=== PATIENT | male | born 1945 | race Caucasian/White ===

== ENCOUNTER 2016-09-19 06:43 | Observation (INO) | payer MEDICARE, BC ==
[2016-09-19] MEDS ORDERED: NS 0.9% 1000 ML* 2,000 ML IV ONE (07:35)
--- NOTE | 2016-09-19 07:35 | ED ---
Allergic Reaction/Systemic - HPI Summary HPI Summary: 71 male presents brought in by EMS with complaints of an allergic reaction to contrast dye that began this morning upon waking, from an imaging study that he received yesterday 09/18/16. Patient has a history of prostate cancer and had it removed back in 2012. He recently had a tumor found in the area of his groin and had an ablation done approximately 1 month ago. He went to have imaging to check on procedure yesterday 09/18/16 in [facility] where he received contrast dye. Due to patients known history of allergic reactions to dye, he was pre-medicated with 150mg prednisone and 100mg of Benadryl before procedure around 1:00pm yesterday. 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 This morning upon waking he states he did not feel well, was nauseous and weak. He also noted his skin to be very red in color throughout body, mainly face and trunk and felt itchy and burning. Also states he has been shivering and feels cold. states when she got up to find him she witnessed him sitting in a chair experiencing a syncopal episode where he was unresponsive, diaphoretic and shaking his arms only lasting a couple of seconds. Patient was completely responsive and normal after episode. Denies seizure history. She states it reminded her of when he had a cardiac arrest back in 2012. Patient also has complaints of a cold, dry non-productive cough and voice hoarseness that has not gone away for the past month even after a Z-pack. Admits to low grade fever of 99-100F. Denies chest pain, SOB, difficulty breathing, airway involvement and abdominal pain before and after episode. Denies hemoptysis, vomiting, dizziness, headache and edema. At the moment complains of feeling tired and weak. PMHx significant for cardiac disease (2 DC's), cardiac arrest, prostate cancer and hypertension. Does admit to this resembling past allergic reactions to contrast dye. 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 Negative: Abdominal Pain, Chest Pain, Cough Wheezing, Difficulty Breathing, Throat Tightening, Vomiting - Related Hx Possible Reaction To: Other: - contrast dye <Livier Miller - Last Filed: 09/19/16 15:23> - HPI Summary HPI Summary: I was available for consultation. This patient was seen by mid level provider. The patient was not presented, seen, or examined by me. WR. <Tramaine Sawyer - Last Filed: 09/20/16 08:28> - History of Current Complaint Chief Complaint: EDAllergicReaction Time Seen by Provider: 09/19/16 07:09 - Allergies/Home Medications Allergies/Adverse Reactions: Allergies Allergy/AdvReac Type Severity Reaction Status Date / Time Iodinated Diagnostic Agents Allergy Severe See Comment Verified 08/14/16 10:58 Levofloxacin Allergy Intermediate Hives Verified 08/14/16 10:58 Home Medications: Home Medications Atorvastatin* [Lipitor*] 20 mg PO QAM 09/19/16 [History Confirmed 09/19/16] Atorvastatin* [Lipitor*] 40 mg PO QAM 09/19/16 [History Confirmed 09/19/16] Ezetimibe TAB* [Zetia TAB*] 10 mg PO QAM 09/19/16 [History Confirmed 09/19/16] Metoprolol Succinate XL TAB* [Toprol XL TAB*] 25 mg PO QAM 09/19/16 [History Confirmed 09/19/16] Nitroglycerin TAB 0.4 MG* 0.4 mg SL Q5M PRN 09/19/16 [History Confirmed 09/19/16 ] PMH/Surg Hx/FS Hx/Imm Hx Endocrine/Hematology History: Denies: Hx Diabetes, Hx Thyroid Disease, Hx Anemia, Hx Unexplained Bleeding Cardiovascular History: Reports: Hx Cardiac Arrest, Hx Hypertension - UNDER CONTROL Denies: Hx Aneurysm, Hx Angina, Hx Angioplasty, Hx Auto Implanted Cardiovert Defib, Hx Cardiomegaly, Hx Congenital Heart Disease, Hx Congestive Heart Failure , Hx Coronary Artery Disease, Hx Deep Vein Thrombosis, Hx Hypercholesterolemia, Hx Hypotension, Hx Pacemaker/ICD, Hx Peripheral Vascular Disease, Hx Rheumatic Fever, Hx Syncope, Hx Valvular Heart Disease, Other Cardiovascular Problems/ Disorders Respiratory History: Denies: Hx Asthma, Hx Chronic Obstructive Pulmonary Disease (COPD) GI History: Denies: Hx Ulcer History: Reports: Hx Benign Prostatic Hyperplasia, Other Problems/ Disorders - prostate cancer, removal of prostate Denies: Hx Renal Disease - hx stones right per pt Musculoskeletal History: Reports: Hx Arthritis, Hx Back Problems Denies: Hx Bursitis, Hx Congenital Bone Abnormalities, Hx Fibromyalgia, Hx Gout, Hx Orthopedic Injury, Hx Osteoporosis, Hx Tendonitis, Other Musculoskeletal History Sensory History: Reports: Hx Contacts or Glasses, Hx Hearing Aid, Hx Hearing Problem Denies: Hx Cataracts, Hx Eye Injury, Hx Eye Prosthesis, Hx Glaucoma, Hx Legally Blind, Hx Macular Degeneration, Hx Vision Problem, Hx Deafness Opthamlomology History: Reports: Hx Contacts or Glasses Denies: Hx Cataracts, Hx Eye Injury, Hx Eye Prosthesis, Hx Glaucoma, Hx Legally Blind, Hx Macular Degeneration, Hx Vision Problem Neurological History: Reports: Other Neuro Impairments/Disorders - PAIN CLINIC INJECTIONS Denies: Hx Dementia, Hx Developmental Delay, Hx Headaches, Hx Migraine, Hx Nerve Disease, Hx Seizures, Hx Spinal Cord Injury, Hx Transient Ischemic Attacks (TIA) Psychiatric History: Denies: Hx Panic Disorder - Cancer History Cancer Type, Location and Year: PROSTATE - Surgical History Surgery Procedure, Year, and Place: Mi - stents IN RCA -[facility]XUS DRUG ELUTING- 10/09,VASECTOMY 07/1982, RT BREAST GYNECOMASTIA 1965, PROSTATECTOMY 2012 Infectious Disease History: No Infectious Disease History: Denies: Hx Clostridium Difficile, Hx Hepatitis, Hx Human Immunodeficiency Virus (HIV), Hx of Known/Suspected MRSA, Hx Shingles, Hx Tuberculosis, Hx Known/ Suspected VRE, Hx Known/Suspected VRSA, History Other Infectious Disease, Traveled Outside the [place] in Last 30 Days - Social History Alcohol Use: None Substance Use Type: Reports: None Smoking Status (MU): Former Smoker Type: Cigarettes Length of Time of Smoking/Using Tobacco: quit 10/09/2004 <Livier Miller - Last Filed: 09/19/16 15:23> Review of Systems Positive: Fever, Chills, Fatigue, Skin Diaphoresis Eyes: Negative ENT: Negative Cardiovascular: Negative Positive: Cough Positive: Nausea Genitourinary: Negative Musculoskeletal: Negative Positive: Rash - erythema, pruritis Positive: Weakness Psychological: Normal All Other Systems Reviewed And Are Negative: Yes <Livier Miller - Last Filed: 09/19/16 15:23> Physical Exam Triage Information Reviewed: Yes Vital Signs On Initial Exam: Initial Vitals Temp Pulse Resp BP Pulse Ox 99.1 F 78 16 124/61 96 09/19/16 06:45 09/19/16 06:45 09/19/16 06:45 09/19/16 06:45 09/19/16 06:45 Vital Signs Reviewed: Yes Appearance: Positive: Well-Appearing - erythematous face and chest observed upon entry, No Pain Distress, Well-Nourished Skin: Positive: Warm, Skin Color Reflects Adequate Perfusion, Dry, Erythema @ - face, trunk, and mild erythema on extremities. Negative: Cold, Numb, Cyanosis @ , Diaphoretic, Scaly Skin/Lesions, Pale, Weeping Skin/Lesions Head/Face: Positive: Normal Head/Face Inspection - beside erythematous skin Eyes: Positive: Normal, EOMI, SAE, Conjunctiva Clear ENT: Positive: Normal ENT inspection, Hearing grossly normal, Pharyngeal erythema, TMs normal. Negative: Nasal congestion, Nasal drainage, Tonsillar swelling, Tonsillar exudate, Trismus, Muffled/hoarse voice Dental: Negative: Percussion Tenderness @, Cervical Lymphadenopathy Neck: Positive: Supple, Nontender, No Lymphadenopathy Respiratory/Lung Sounds: Positive: Clear to Auscultation, Breath Sounds Present , Decreased Breath Sounds. Negative: Rales, Rhonchi, Wheezes Cardiovascular: Positive: Normal, RRR, Pulses are Symmetrical in both Upper and Lower Extremities. Negative: Leg Edema Left, Leg Edema Right Abdomen Description: Positive: Nontender, No Organomegaly, Soft. Negative: CVA Tenderness (R), CVA Tenderness (L), Distended, Guarding, McBurney's Point Tenderness, Peritoneal Signs, Pulsatile Mass Bowel Sounds: Positive: Present Musculoskeletal: Positive: Normal, Strength/ROM Intact. Negative: Edema Left, Edema Right Neurological: Positive: Normal, Sensory/Motor Intact, Alert, Oriented to Person Place, Time, CN Intact II-III, Normal Gait, Facial Symmetry, Speech Normal. Negative: Disoriented, Facial Droop Psychiatric: Positive: Normal, Affect/Mood Appropriate - [place] Coma Scale Coma Scale Total: 15 <Livier Miller - Last Filed: 09/19/16 15:23> Vital Signs On Initial Exam: Initial Vitals Temp Pulse Resp BP Pulse Ox 99.1 F 78 16 124/61 96 09/19/16 06:45 09/19/16 06:45 09/19/16 06:45 09/19/16 06:45 09/19/16 06:45 <Tramaine Sawyer - Last Filed: 09/20/16 08:28> Diagnostics - Vital Signs Vital Signs Temp Pulse Resp BP Pulse Ox 09/19/16 07:32 100.7 F 09/19/16 07:26 78 107/72 99 09/19/16 07:21 80 97 09/19/16 06:45 99.1 F 78 16 124/61 96 - Laboratory Result Diagrams: 09/19/16 07:35 09/19/16 07:35 Lab Statement: Any lab studies that have been ordered have been reviewed, and results considered in the medical decision making process. - Radiology chest x-ray Xray Interpretation: No Acute Changes - NO ACTIVE DISEASE. Radiology Interpretation Completed By: Radiologist - CT CT Brain WO CT Interpretation: No Acute Changes - NO INTRACRANIAL MASS OR HEMORRHAGE. BILATERAL BASAL GANGLIA CALCULATIONS UNCHANGED FROM PREVIOUS EXAM. CT Interpretation Completed By: Radiologist - EKG EKG Cardiac Rate: NL EKG Rhythm: Sinus Rhythm ST Segment: Normal Ectopy: None EKG Interpretation: no stemi, q wave in lead III <Livier Miller - Last Filed: 09/19/16 15:23> - Vital Signs Vital Signs Temp Pulse Resp BP Pulse Ox 09/19/16 11:00 76 134/59 93 09/19/16 10:30 73 132/53 92 09/19/16 10:00 77 122/52 93 09/19/16 09:30 76 119/59 93 09/19/16 09:00 76 95 09/19/16 08:50 76 121/53 95 09/19/16 08:00 75 97 09/19/16 07:43 97 09/19/16 07:32 100.7 F 09/19/16 07:30 124/54 09/19/16 07:26 78 107/72 99 09/19/16 07:21 80 97 09/19/16 06:45 99.1 F 78 16 124/61 96 - Laboratory Lab Results: Lab Results 09/19/16 09/19/16 09/19/16 Range/Units 07:35 07:35 07:35 WBC 14.2 H (3.5-10.8) 10^3/ul RBC 5.21 (4.0-5.4) 10^6/ul Hgb 14.3 (14.0-18.0) g/dl Hct 44 (42-52) % MCV 84 (80-94) fL MCH 27 (27-31) pg MCHC 33 (31-36) g/dl RDW 14 (10.5-15) % Plt Count 198 (150-450) 10^3/ul MPV 8 (7.4-10.4) um3 Neut % (Auto) 92.5 H (38-83) % Lymph % (Auto) 3.4 L (25-47) % [place] % (Auto) 2.9 (1-9) % Eos % (Auto) 0.6 (0-6) % Baso % (Auto) 0.6 (0-2) % Absolute Neuts (auto) 13.1 H (1.5-7.7) 10^3/ul Absolute Lymphs (auto) 0.5 L (1.0-4.8) 10^3/ul Absolute Monos (auto) 0.4 (0-0.8) 10^3/ul Absolute Eos (auto) 0.1 (0-0.6) 10^3/ul Absolute Basos (auto) 0.1 (0-0.2) 10^3/ul Absolute Nucleated RBC 0 10^3/ul Nucleated RBC % 0 Sodium 137 (133-145) mmol/L Potassium 2.9 L (3.5-5.0) mmol/L Chloride 101 (101-111) mmol/L Carbon Dioxide 28 (22-32) mmol/L Anion Gap 8 (2-11) mmol/L BUN 17 (6-24) mg/dL Creatinine 1.01 (0.67-1.17) mg/dL Est GFR ( Amer) 93.9 (>60) Est GFR (Non-Af Amer) 73.0 (>60) BUN/Creatinine Ratio 16.8 (8-20) Glucose 128 H (70-100) mg/dL Lactic Acid 2.8 H* (0.5-2.0) mmol/L Calcium 9.3 (8.6-10.3) mg/dL Magnesium 1.9 (1.9-2.7) mg/dL Total Bilirubin 1.60 H (0.2-1.0) mg/dL AST 31 (13-39) U/L ALT 38 (7-52) U/L Alkaline Phosphatase 69 (34-104) U/L Troponin I 0.01 (<0.04) ng/mL B-Natriuretic Peptide ( - 100) pg/mL Total Protein 7.0 (6.4-8.9) g/dL Albumin 4.0 (3.2-5.2) g/dL Globulin 3.0 (2-4) g/dL Albumin/Globulin Ratio 1.3 (1-3) TSH 1.54 (0.34-5.60) mcIU/mL Urine Color Urine Appearance Urine pH (5-9) Ur Specific [place] (1.010-1.030) Urine Protein (Negative) Urine Ketones (Negative) Urine Blood (Negative) Urine Nitrate (Negative) Urine Bilirubin (Negative) Urine Urobilinogen (Negative) Ur Leukocyte Esterase (Negative) Urine Glucose (Negative) 09/19/16 09/19/16 Range/Units 07:35 09:50 WBC (3.5-10.8) 10^3/ul RBC (4.0-5.4) 10^6/ul Hgb (14.0-18.0) g/dl Hct (42-52) % MCV (80-94) fL MCH (27-31) pg MCHC (31-36) g/dl RDW (10.5-15) % Plt Count (150-450) 10^3/ul MPV (7.4-10.4) um3 Neut % (Auto) (38-83) % Lymph % (Auto) (25-47) % [place] % (Auto) (1-9) % Eos % (Auto) (0-6) % Baso % (Auto) (0-2) % Absolute Neuts (auto) (1.5-7.7) 10^3/ul Absolute Lymphs (auto) (1.0-4.8) 10^3/ul Absolute Monos (auto) (0-0.8) 10^3/ul Absolute Eos (auto) (0-0.6) 10^3/ul Absolute Basos (auto) (0-0.2) 10^3/ul Absolute Nucleated RBC 10^3/ul Nucleated RBC % Sodium (133-145) mmol/L Potassium (3.5-5.0) mmol/L Chloride (101-111) mmol/L Carbon Dioxide (22-32) mmol/L Anion Gap (2-11) mmol/L BUN (6-24) mg/dL Creatinine (0.67-1.17) mg/dL Est GFR ( Amer) (>60) Est GFR (Non-Af Amer) (>60) BUN/Creatinine Ratio (8-20) Glucose (70-100) mg/dL Lactic Acid (0.5-2.0) mmol/L Calcium (8.6-10.3) mg/dL Magnesium (1.9-2.7) mg/dL Total Bilirubin (0.2-1.0) mg/dL AST (13-39) U/L ALT (7-52) U/L Alkaline Phosphatase (34-104) U/L Troponin I (<0.04) ng/mL B-Natriuretic Peptide 69 ( - 100) pg/mL Total Protein (6.4-8.9) g/dL Albumin (3.2-5.2) g/dL Globulin (2-4) g/dL Albumin/Globulin Ratio (1-3) TSH (0.34-5.60) mcIU/mL Urine Color Yellow Urine Appearance Clear Urine pH 6.0 (5-9) Ur Specific [place] 1.020 (1.010-1.030) Urine Protein Negative (Negative) Urine Ketones Negative (Negative) Urine Blood Negative (Negative) Urine Nitrate Negative (Negative) Urine Bilirubin Negative (Negative) Urine Urobilinogen Negative (Negative) Ur Leukocyte Esterase Negative (Negative) Urine Glucose Negative (Negative) Result Diagrams: 09/20/16 05:00 09/20/16 05:00 Lab Statement: Any lab studies that have been ordered have been reviewed, and results considered in the medical decision making process. <Tramaine Sawyer - Last Filed: 09/20/16 08:28> Re-Evaluation - Re-Evaluation First Eval Re-Evaluation Time: 09:47 Change: Improved Comment: states he is feeling better but he definetely is not up to par. he is fatigued and drowsy from episode and Benadryl. CT brain and UA pending. <Livier Miller - Last Filed: 09/19/16 15:23> Allergic Reaction Course/Dx - Course Course Of Treatment: Labs, UA, EKG, CT Brain, Chest x-ray obtained due to patient history and complaint of syncopal episode. Fluids and pepcid administered. WBC with left shift and elevated lactic acid noted on lab work however, this is possibly elevated due to allergic reaction and steroid administration. Rest of labs, troponin, EKG, X-ray and CT head unremarkable. Due to history and complaints Dr Cee consulted. Will be admitted for possible spesis, fluids, blood cultures and antibitoics. - Diagnoses Differential Diagnosis/HQI/PQRI: Positive: Anaphylaxis, Angioedema, Local Allergic Reaction - Provider Notifications Patient Care Discussed With: Dr Cee Time Discussed With Above Provider: 11:10 Instructed by Provider To: Admit As Inpatient <Livier Miller - Last Filed: 09/19/16 15:23> <Tramaine Sawyer - Last Filed: 09/20/16 08:28> - Diagnoses Provider Diagnoses: SYNCOPE/SIRS VS SEPSIS Discharge <Livier Miller - Last Filed: 09/19/16 15:23> <Tramaine Sawyer - Last Filed: 09/20/16 08:28> - Discharge Plan Condition: Stable Disposition: ADMITTED TO [facility]
[2016-09-19] MEDS ORDERED: Famotidine IV* 10 MG/ML 2 ML (20 mg) IV SLOW PU ONE (07:39)
[2016-09-19 07:46] LABS: Hematocrit 44 % (42-52); Hemoglobin 14.3 g/dl (14.0-18.0); Mean Corpuscular HGB Conc 33 g/dl (31-36); Mean Corpuscular Hemoglobin 27 pg (27-31); Mean Corpuscular Volume 84 fL (80-94); Mean Platelet Volume 8 um3 (7.4-10.4); Red Blood Count 5.21 10^6/ul (4.0-5.4); Red Cell Distribution Width 14 % (10.5-15); White Blood Count 14.2 10^3/ul (3.5-10.8)
[2016-09-19 08:03] LABS: BUN/Creatinine Ratio 16.8 (8-20); Calcium 9.3 mg/dL (8.6-10.3); EGFR African American 93.9 (>60); Magnesium 1.9 mg/dL (1.9-2.7); Potassium 2.9 mmol/L (3.5-5.0); Total Bilirubin 1.6 mg/dL (0.2-1.0)
--- NOTE | 2016-09-19 08:03 | RAD ---
INDICATION: Cough COMPARISON: May 26, 2012 TECHNIQUE: PA and lateral dual-energy views were obtained. FINDINGS: Bones/Soft Tissues: There are no acute bony findings. Cardiomediastinal: The cardiomediastinal silhouette is normal. Lungs: There are no infiltrates. Pleura: There are no pleural effusions. Other: None IMPRESSION: NO ACTIVE DISEASE.
[2016-09-19 08:05] LABS: Troponin I 0.01 ng/mL (<0.04)
[2016-09-19 08:51] LABS: TSH (Thyroid Stimulating Horm) 1.54 mcIU/mL (0.34-5.60)
--- NOTE | 2016-09-19 10:10 | RAD ---
Indication: Syncope. CT of the brain was performed without IV contrast. Comparison is made with previous exam dated July 12, 2009. Ventricular structures are midline. No midline shift is noted. The extra-axial spaces are unremarkable. Bilateral basal ganglia calcifications are present which are unchanged from July 12, 2009. There is no evidence of intracranial mass or hemorrhage is noted. IMPRESSION: NO INTRACRANIAL MASS OR HEMORRHAGE. BILATERAL BASAL GANGLIA CALCULATIONS UNCHANGED FROM PREVIOUS EXAM.
[2016-09-19 10:23] LABS: Urine Bilirubin Negative (Negative); Urine Glucose Negative (Negative); Urine Nitrite Negative (Negative)
[2016-09-19] MEDS ORDERED: NS 0.9% 1000 ML* 1,000 ML IV SCH ×2 (11:00→14:39)
[2016-09-19] MEDS ORDERED: Cefepime(*) 1 GM in NS 0.9% 50 ML* 50 ML IVPB ONE (11:00)
[2016-09-19] MEDS ORDERED: NS 0.9% 50 ML* 50 ML ONE (11:42)
[2016-09-19] MEDS ORDERED: Ondansetron INJ* 2 MG/ML VIAL IV PRN (14:37)
[2016-09-19] MEDS ORDERED: Acetaminophen TAB* 325 MG PO PRN (14:37)
[2016-09-19] MEDS ORDERED: Potassium Chlor TAB* 20 MEQ TAB.ER PO ONE (14:45)
[2016-09-19 16:20] LABS: EGFR African American 84.2 (>60); EGFR Non-African American 65.5 (>60)
[2016-09-19 16:22] LABS: Hematocrit 40 % (42-52); Mean Corpuscular HGB Conc 33 g/dl (31-36); Mean Corpuscular Hemoglobin 28 pg (27-31); Mean Corpuscular Volume 84 fL (80-94); Mean Platelet Volume 8 um3 (7.4-10.4); Red Blood Count 4.73 10^6/ul (4.0-5.4); Red Cell Distribution Width 14 % (10.5-15); White Blood Count 13.9 10^3/ul (3.5-10.8)
[2016-09-19] MEDS: KCL 10 MEQ/50 ML IVPREMIX* 10 MEQ/50 ML BAG IV SCH ×3 (17:05→21:41)
[2016-09-19] MEDS: diPHENhydraMINE PO* 50 MG PO PRN (20:50)
[2016-09-19] MEDS ORDERED: KCL 10 MEQ/50 ML IVPREMIX* 10 MEQ/50 ML BAG ONE (21:39)
[2016-09-19] MEDS: Heparin VIAL(*) 5000 UNITS/ML VIAL (FIVE THOUSAND) SUBCUT SCH (21:45)
--- NOTE | 2016-09-19 22:55 | HP ---
HISTORY AND PHYSICAL: DATE OF ADMISSION: 09/19/16 PRIMARY CARE PROVIDER: Dr. Bermudez. ATTENDING PHYSICIAN WHILE IN THE HOSPITAL: Gauri Pang MD* (report dictated by Terrell Colón NP). CHIEF COMPLAINT: Syncope. HISTORY OF PRESENT ILLNESS: Mr. Toro is a 71-year-old male patient. He has a history of GERD, diverticulosis, CAD, prostate cancer which he follows in [facility] for, hyperlipidemia, hypertension and sciatica. He comes in today stating that he was having a followup CAT scan from a recent ablation about a month ago at [facility]. He had a cryoablation of a tumor that was growing in the prostate bed. He has had a prostatectomy in the past and he comes in today. He has an allergy to IV DYE. He was premedicated for that by taking prednisone and Benadryl which he has done several times and he typically despite taking this has a delayed reaction after the scan. He states he looks like he is sun burned and he has some itching 1 to 2 days after. He underwent a scan yesterday in [facility]. He took the [facility] bus back home and while in the bus, he started noticing he was itching. He got home, he felt very weak, he felt tired, he was dehydrated. He felt that he had not been drinking. He states that he felt nauseous and he just basically went to bed, he woke up this morning, still feeling very weak, very tired. He states that the he got up. He went and had a bowel movement and then he walked over to his desk in his office, sat down and he was still feeling a little nauseous and the next thing he knew his was standing over him, calling his name, he had passed out. He had passed out for a few seconds according to the patient. He had no prodrome symptoms such as chest pain or shortness of breath afterwards. He states he felt lightheaded, just tired and he was concerned and came into the hospital. He does admit to having an episode of sore throat, feeling congested and runny nose about a month ago and now he has a dry cough, it is nonproductive, but no fevers or chills. He denied having any vomiting, but he just felt nauseous and did not feel good. He denies having any chest pain or shortness of breath or any abdominal discomfort. He came into the ER because of the episode. He was evaluated. It was noted that he had a low grade fever of 100.7. His white count was up a little bit. His lactic acid was 2.8, his potassium was low as well. Because of these findings, we were asked to evaluate for admission. PAST MEDICAL HISTORY: Significant for: 1. GERD. 2. Diverticulosis. 3. CAD. 4. Prostate cancer. 5. Hyperlipidemia. 6. Hypertension. 7. Sciatica. PAST SURGICAL HISTORY: 1. He has had a prostate ablation about a month ago. 2. Prostatectomy. 3. Cardiac catheterization with 2 stents. HOME MEDICATIONS: Include: 1. Nitro 0.4 mg sublingual q.5 minutes x3 p.r.n. chest pain. 2. Lipitor 60 mg daily. 4. Valsartan/hydrochlorothiazide 1 tablet daily. 5. Zetia 10 mg daily. 6. Aspirin 81 mg daily. 7. Metoprolol XL 25 mg daily. ALLERGIES TO MEDICATIONS: Include IV DYE and LEVAQUIN. FAMILY HISTORY: His mother had CVA and [place]. Father had a history of leukemia and [place]. SOCIAL HISTORY: He does not smoke. He does not drink. Surrogate decision maker is his . He is a real estate agent/broker. REVIEW OF SYSTEMS: There is no documented fever at home, but there is one in the ER of 100.7. There is no chills. No significant weight change. No double vision. No ear discharge. There is no rhinorrhea. He did admit to having sore throat about a month ago and congestion, it was now improved. He does admit to having a dry cough. He denies any shortness of breath. No chest pain. No orthopnea. No nocturnal dyspnea. There is no abdominal pain. No nausea. No vomiting. No dysuria. No frequency. No loss of consciousness. No pruritus. No skin ulcerations. Review of 14-systems completed, all others negative. PHYSICAL EXAMINATION GENERAL: At this time, Mr. Toro is a 71-year-old male patient. He appears to be well nourished, well developed. He is sitting in the hospital bed. He does not appear to be in any acute distress. VITAL SIGNS: Blood pressure 117/54, pulse 74, respirations 16, O2 sat 97%, temperature 99.5. HEENT: Head is atraumatic, normocephalic. Eyes: EOMs are intact. Sclerae anicteric and not pale. NECK: Supple. Throat: Oral mucosa appears to be moist. No oropharyngeal erythema. LUNGS: Clear to auscultation. No wheezing, rales or rhonchi. HEART: Sounds S1, and S2. Regular rate and rhythm. No murmurs, rubs or gallops. ABDOMEN: Soft, flat, nontender. Bowel sounds present. EXTREMITIES: Pulses are 2+ throughout. No peripheral edema. He had 5/5 strength. NEUROLOGIC: The patient is awake. He is alert. He is oriented x3. His tongue is midline. Clinic Clerk are equal. He had no gross focal deficits. SKIN: Intact. He does have diffuse erythema, particularly to his arms and to his face. He had no stridor and no blistering was noted. There was no sores noted in the mouth and there did not appear to be raised rashes as well. LABORATORY DATA: Labs today revealed a WBC of 14.2, RBC of 5.21, hemoglobin 14.3, hematocrit 44, platelet count 198. Sodium 137, potassium 2.9, chloride 101,bicarb 28, BUN 17, creatinine 1.01. The glucose was 128, lactate 2.9 and calcium 9.3, total magnesium was 1.9, total bilirubin 1.6, AST 31, ALT 38, alk phos 69, troponin 0.01. BNP 69, albumin 4.0, TSH 1.54. Urine was obtained, it was negative. IMAGING: He had a brain CT obtained in the ED which revealed no intracranial mass or hemorrhage. Bilateral basal ganglia, calcifications unchanged from previous exam. Chest x-ray showed no active disease. EKG shows normal sinus rhythm, rate of 74. No ST elevations or T-wave inversions were noted. Old medical records reviewed. ASSESSMENT AND PLAN: Mr. Toro is a 71-year-old male patient coming into the ER today with complaints of a syncopal episode and feeling weak and tired and not feeling well. He comes in today, we were asked to evaluate for admission, he will be admitted under observation status for: 1. Syncope. I suspect this was probably a vasovagal type syncope. He was nauseous right before it happened. He had no chest pain prior to or after, but this is cardiac disease. I think cycling his troponins, checking orthostatics, placing him on telemetry, EKG in the morning, in addition to this checking an echo is appropriate and will continue to follow. 2. Leukocytosis with elements of systemic inflammatory response syndrome. This could just be related to allergic reaction, but I do think that we should panculture him and I do not think this is a point for antibiotics at this point unless he continues to have fevers, I would put him on broad spectrum antibiotics. We will hydrate him. Blood cultures, urine, chest x-ray all done. I am also going to get a flu swab. 3. Gastroesophageal reflux disease. Continue current medical regimen. 4. History of coronary artery disease. Continue with statin therapy and beta- litzy, and also continue the metoprolol and aspirin as well. 5. Hypertension. Continue the metoprolol and I will hold the valsartan/ hydrochlorothiazide as I do think he is a little dehydrated. 6. Hyperlipidemia. Continue statin therapy and Zetia. 7. Prostate cancer. He can follow with his primary. 8. Code Status: Full code. 9. Fluids, electrolytes and nutrition. He can have a heart healthy diet. 10. DVT prophylaxis. He will be placed on heparin subcu. TIME SPENT: Time spent on the admission was 60 minutes, greater than half the time was spent [id number] with the patient obtaining my history and physical, the other half time was spent going over the plan of care with the patient and implementing plan of care. I did discuss the plan of care with my attending Dr. Pang, she is in agreement. TERRELL COLÓN NP CC: Dr. Bermudez* [id number]/CPS #: [id number] RAY
[2016-09-20] MEDS: Heparin VIAL(*) 5000 UNITS/ML VIAL (FIVE THOUSAND) SUBCUT SCH (05:28)
[2016-09-20 05:35] LABS: Hematocrit 36 % (42-52); Hemoglobin 11.9 g/dl (14.0-18.0); Mean Corpuscular HGB Conc 33 g/dl (31-36); Mean Corpuscular Hemoglobin 28 pg (27-31); Mean Corpuscular Volume 84 fL (80-94); Mean Platelet Volume 8 um3 (7.4-10.4); Red Blood Count 4.27 10^6/ul (4.0-5.4); Red Cell Distribution Width 15 % (10.5-15); White Blood Count 8.8 10^3/ul (3.5-10.8)
[2016-09-20 05:50] LABS: BUN/Creatinine Ratio 17.3 (8-20); Calcium 8.2 mg/dL (8.6-10.3); EGFR African American 121.2 (>60); EGFR Non-African American 94.2 (>60); Potassium 3.6 mmol/L (3.5-5.0)
[2016-09-20 08:09] VITALS: BP 105/57
[2016-09-20] MEDS: diPHENhydraMINE PO* 50 MG PO PRN (08:35)
[2016-09-20] MEDS ORDERED: Aspirin Low Dose CHEW TAB* 81 MG PO SCH (09:00)
[2016-09-20] MEDS ORDERED: Atorvastatin* 40 MG TAB PO SCH (09:00)
[2016-09-20] MEDS ORDERED: Metoprolol Succinate XL TAB* 25 MG PO SCH (09:00)
[2016-09-20] MEDS ORDERED: Ezetimibe TAB* 10 MG PO SCH (09:00)
[2016-09-20] MEDS ORDERED: Atorvastatin* 20 MG TAB PO SCH (09:00)
--- NOTE | 2016-09-20 11:09 | DCNOTE ---
Patient feels better this morning although still slightly light-headed at times when walking. Denies chest pain or SOB. On exam, RRR, s1 and s2 present, no m/g/r, abd soft, NTND, BS+, no LE edema Discharge home today, will hold home BP med, monitor BPs at home, f/u with Dr. Bermudez.
--- NOTE | 2016-09-21 04:06 | DS ---
DISCHARGE SUMMARY: DATE OF ADMISSION: 09/19/16 DATE OF DISCHARGE: 09/20/16 PRIMARY CARE PROVIDER: Jhonny Bermudez MD PRINCIPAL DISCHARGE DIAGNOSES: 1. Syncope. 2. Allergic reaction. SECONDARY DIAGNOSES: 1. Gastroesophageal reflux disease. 2. Coronary artery disease. 3. Prostate cancer. 4. Hyperlipidemia. 5. Hypertension. 6. Sciatica. DISCHARGE MEDICATION REGIMEN: 1. Nitroglycerin 0.4 mg sublingual every 5 minutes as needed for chest pain. 2. Lipitor 60 mg by mouth daily. 3. Zetia 10 mg by mouth daily. 4. Aspirin 81 mg by mouth daily. 5. Toprol-XL 25 mg by mouth daily. 6. Diovan 80/12.5 mg 1 tablet by mouth daily, instructed to hold for the next 2 to 3 days until blood pressure has come up to 140s and 150s. STUDIES DONE DURING HOSPITALIZATION: Chest x-ray, impression: No active disease. CT of the brain without contrast, impression: No intracranial mass or hemorrhage. Bilateral basal ganglia calcifications, unchanged from previous exam. HISTORY OF PRESENT ILLNESS AND HOSPITAL SUMMARY: Please see the full history and physical by Terrell Colón NP, for full details. Briefly, Mr. Toro is a 71-year- old man with past medical history as above, who presented to the hospital after an adverse reactions from IV CONTRAST, which he usually gets; however, it seemed a bit more significant at this time and was followed by the patient feeling very weak, nauseous, and having an episode of syncope. It was felt that the symptoms were likely due to a combination of reaction to the CONTRAST as well as some dehydration as the patient did have an elevated lactate. On admission, the patient was given some IV fluids and did not have any arrhythmias noted on telemetry. The patient felt well the following day, still is having a slight amount of lightheadedness with ambulating; however, his status was much improved. The patient will be discharged home. He was instructed to try to avoid CT CONTRAST in the future and see if an MRI could be done instead for his cancer screening. TIME SPENT: Total time spent on this discharge 40 minutes. This is a summary of the hospitalization. Please see the full medical record for further details. CC: Dr. Bermudez* [id number]/CPS #: [id number] [facility]
== END 2016-09-20 12:37 | disposition home or self-care (01) ==
LOC: ED 06:43 → MEDTELE 11:02
PROVIDERS: ADMIT Internal Medicine; ATTEND Hospitalist
DX: R55 Syncope and collapse (principal); T50.8X5A Adverse effect of diagnostic agents, initial encounter; Y92.239 Unspecified place in hospital as the place of occurrence of the external cause; K21.9 Gastro-esophageal reflux disease without esophagitis; D72.829 Elevated white blood cell count, unspecified; I25.10 Atherosclerotic heart disease of native coronary artery without angina pectoris; I10 Essential (primary) hypertension; E78.5 Hyperlipidemia, unspecified; M54.30 Sciatica, unspecified side; Z85.46 Personal history of malignant neoplasm of prostate; Z79.899 Other long term (current) drug therapy; Z79.82 Long term (current) use of aspirin; Z87.891 Personal history of nicotine dependence; R94.31 Abnormal electrocardiogram [ECG] [EKG]
CPT/HCPCS: 36415; 70450; 71020; 80048; 80053; 81003; 82565; 83605; 83735; 83880; 84443; 84484; 84520; 85025; 85610; 85730; 87040; 87502; 93005; 94760; 96361; 96365; 96367; 96375; 99284; A9270-GY; G0378; J0692; J3480

== ENCOUNTER 2017-04-28 12:41 | Emergency (ER) | payer MEDICARE, BC ==
[2017-04-28] MEDS ORDERED: Albuterol/Ipratropium NEB.SOL* Albuterol 2.5 MG/Ipratropium 0.5 MG 3 ML INH ONE ×2 (13:04→13:29)
[2017-04-28] MEDS ORDERED: methylPREDNISolone 125 MG* 2 ML VIAL IV ONE (13:31)
[2017-04-28 13:52] LABS: Hematocrit 43 % (42-52); Hemoglobin 14.4 g/dl (14.0-18.0); Mean Corpuscular HGB Conc 34 g/dl (31-36); Mean Corpuscular Hemoglobin 29 pg (27-31); Mean Corpuscular Volume 85 fL (80-94); Mean Platelet Volume 7 um3 (7.4-10.4); Red Blood Count 5.02 10^6/ul (4.0-5.4); Red Cell Distribution Width 15 % (10.5-15); White Blood Count 9.3 10^3/ul (3.5-10.8)
--- NOTE | 2017-04-28 14:08 | RAD ---
INDICATION: Short of breath COMPARISON: April 19, 2017 TECHNIQUE: An AP portable view obtained at 1345 hours is submitted. FINDINGS: Bones/Soft Tissues: There are no acute bony findings. Cardiomediastinal: The cardiomediastinal silhouette is normal. Lungs: There are no infiltrates. Pleura: There are no pleural effusions. Other: None IMPRESSION: NO ACTIVE DISEASE
[2017-04-28 14:10] LABS: BUN/Creatinine Ratio 19.7 (8-20); Calcium 9.7 mg/dL (8.6-10.3); EGFR African American 141.1 (>60); EGFR Non-African American 109.7 (>60); Globulin 3.2 g/dL (2-4); Potassium 3.5 mmol/L (3.5-5.0); Total Bilirubin 1.1 mg/dL (0.2-1.0); Total Protein 7.2 g/dL (6.4-8.9)
[2017-04-28 14:11] LABS: Troponin I 0.01 ng/mL (<0.04)
--- NOTE | 2017-04-28 15:05 | ED ---
Maurizio Infante Abhishek, scribed for Trev Godwin on 04/28/17 at 1340 . Respiratory - HPI Summary HPI Summary: This patient is a 43 year old M presenting to [facility] accompanied by with a chief complaint of SOB since February and the chief complaint is described as constant. The patient rates the pain 0/10 in severity. The patient states that the symptoms were worse since 2 nights ago. Symptoms aggravated by nothing. Symptoms alleviated by nebulizer. Pt states that he could barely breathe when he walked in here. Pt takes prednisone. Patient reports productive cough ( yellow phlegm), and wheezing. Pts states that patient has had decreased sleep. Patient denies edema, and fever. - History of Current Complaint Chief Complaint: EDShortnessOfBreath Stated Complaint: DIFFICULTY BREATHING Time Seen by Provider: 04/28/17 13:14 Hx Obtained From: Patient, Family/Mixing Pan Tender Onset/Duration: Gradual Onset, Lasting Weeks - Since February, Still Present, Worse Since - 2 nights ago Current Severity: None Pain Intensity: 0 Character: Cough (Productive) - yellow (phlegm) Sputum Color: Yellow Aggravating Factor(s): Nothing Alleviating Factor(s): Other - Nebulizer Associated Signs and Symptoms: SOB, Wheezing - Allergy/Home Medications Allergies/Adverse Reactions: Allergies Allergy/AdvReac Type Severity Reaction Status Date / Time Iodinated Diagnostic Agents Allergy Severe See Comment Verified 04/19/17 05:04 Levofloxacin Allergy Intermediate Hives Verified 04/19/17 05:04 PMH/Surg Hx/FS Hx/Imm Hx Endocrine/Hematology History: Denies: Hx Diabetes, Hx Thyroid Disease, Hx Anemia, Hx Unexplained Bleeding Cardiovascular History: Reports: Hx Cardiac Arrest, Hx Hypertension - UNDER CONTROL, Hx Myocardial Infarction Denies: Hx Aneurysm, Hx Angina, Hx Angioplasty, Hx Auto Implanted Cardiovert Defib, Hx Cardiomegaly, Hx Congenital Heart Disease, Hx Congestive Heart Failure , Hx Coronary Artery Disease, Hx Deep Vein Thrombosis, Hx Hypercholesterolemia, Hx Hypotension, Hx Pacemaker/ICD, Hx Peripheral Vascular Disease, Hx Rheumatic Fever, Hx Syncope, Hx Valvular Heart Disease, Other Cardiovascular Problems/ Disorders Respiratory History: Denies: Hx Asthma, Hx Chronic Obstructive Pulmonary Disease (COPD) GI History: Denies: Hx Ulcer History: Reports: Hx Benign Prostatic Hyperplasia, Other Problems/ Disorders - prostate cancer, removal of prostate Denies: Hx Renal Disease - hx stones right per pt Musculoskeletal History: Reports: Hx Arthritis, Hx Back Problems Denies: Hx Bursitis, Hx Congenital Bone Abnormalities, Hx Fibromyalgia, Hx Gout, Hx Orthopedic Injury, Hx Osteoporosis, Hx Tendonitis, Other Musculoskeletal History Sensory History: Reports: Hx Contacts or Glasses, Hx Hearing Aid, Hx Hearing Problem Denies: Hx Cataracts, Hx Eye Injury, Hx Eye Prosthesis, Hx Glaucoma, Hx Legally Blind, Hx Macular Degeneration, Hx Vision Problem, Hx Deafness Opthamlomology History: Reports: Hx Contacts or Glasses Denies: Hx Cataracts, Hx Eye Injury, Hx Eye Prosthesis, Hx Glaucoma, Hx Legally Blind, Hx Macular Degeneration, Hx Vision Problem Neurological History: Reports: Other Neuro Impairments/Disorders - PAIN CLINIC INJECTIONS Denies: Hx Dementia, Hx Developmental Delay, Hx Headaches, Hx Migraine, Hx Nerve Disease, Hx Seizures, Hx Spinal Cord Injury, Hx Transient Ischemic Attacks (TIA) Psychiatric History: Denies: Hx Panic Disorder - Cancer History Cancer Type, Location and Year: PROSTATE - Surgical History Surgery Procedure, Year, and Place: Mi - stents IN RCA -TAXUS DRUG ELUTING- 10/09,VASECTOMY 07/1982, RT BREAST GYNECOMASTIA 1965, PROSTATECTOMY 2012 Infectious Disease History: No Infectious Disease History: Denies: Hx Clostridium Difficile, Hx Hepatitis, Hx Human Immunodeficiency Virus (HIV), Hx of Known/Suspected MRSA, Hx Shingles, Hx Tuberculosis, Hx Known/ Suspected VRE, Hx Known/Suspected VRSA, History Other Infectious Disease, Traveled Outside the [place] in Last 30 Days - Family History Known Family History: Positive: Other - Mother and father: [place]. Mother: CVA. Father: leukemia - Social History Alcohol Use: Rare Substance Use Type: Reports: None Smoking Status (MU): Former Smoker Type: Cigarettes Length of Time of Smoking/Using Tobacco: quit 10/09/2004 Review of Systems Negative: Fever Eyes: Negative ENT: Negative Cardiovascular: Negative Positive: Shortness Of Breath, Cough - productive (yellow phlegm), Other - wheezing Gastrointestinal: Negative Genitourinary: Negative Negative: Edema Skin: Negative Neurological: Other - Decreased sleep Psychological: Normal All Other Systems Reviewed And Are Negative: Yes Physical Exam - Summary Physical Exam Summary: Appearance: Well appearing, no pain distress Skin: warm, dry, reflects adequate perfusion Head/face: normal Eyes: EOMI, SAE ENT: normal Neck: supple, non-tender Respiratory: Bilateral wheezing Cardiovascular: RRR, pulses symmetrical Abdomen: non-tender, soft Bowel: present Musculoskeletal: normal, strength/ROM intact Neuro: normal, sensory motor intact, A&Ox3 Triage Information Reviewed: Yes Vital Signs On Initial Exam: Initial Vitals Temp Pulse Resp BP Pulse Ox 97.6 F 81 20 143/74 96 04/28/17 12:46 04/28/17 12:46 04/28/17 12:46 04/28/17 12:46 04/28/17 12:46 Vital Signs Reviewed: Yes - [place] Coma Scale Coma Scale Total: 15 Diagnostics - Vital Signs Vital Signs Temp Pulse Resp BP Pulse Ox 04/28/17 13:19 82 18 94 04/28/17 13:01 85 130/67 94 04/28/17 12:46 97.6 F 81 20 143/74 96 - Laboratory Lab Results: Lab Results 04/28/17 04/28/17 04/28/17 Range/Units 13:36 13:36 13:36 WBC 9.3 (3.5-10.8) 10^3/ul RBC 5.02 (4.0-5.4) 10^6/ul Hgb 14.4 (14.0-18.0) g/dl Hct 43 (42-52) % MCV 85 (80-94) fL MCH 29 (27-31) pg MCHC 34 (31-36) g/dl RDW 15 (10.5-15) % Plt Count 213 (150-450) 10^3/ul MPV 7 L (7.4-10.4) um3 Neut % (Auto) 67.5 (38-83) % Lymph % (Auto) 16.1 L (25-47) % [place] % (Auto) 7.3 (1-9) % Eos % (Auto) 8.7 H (0-6) % Baso % (Auto) 0.4 (0-2) % Absolute Neuts (auto) 6.3 (1.5-7.7) 10^3/ul Absolute Lymphs (auto) 1.5 (1.0-4.8) 10^3/ul Absolute Monos (auto) 0.7 (0-0.8) 10^3/ul Absolute Eos (auto) 0.8 H (0-0.6) 10^3/ul Absolute Basos (auto) 0 (0-0.2) 10^3/ul Absolute Nucleated RBC 0 10^3/ul Nucleated RBC % 0 INR (Anticoag Therapy) 1.02 (0.89-1.11) APTT 27.7 (26.0-36.3) seconds D-Dimer, Quantitative < 200 (Less Than 230) ng/mL Sodium (133-145) mmol/L Potassium (3.5-5.0) mmol/L Chloride (101-111) mmol/L Carbon Dioxide (22-32) mmol/L Anion Gap (2-11) mmol/L BUN (6-24) mg/dL Creatinine (0.67-1.17) mg/dL Est GFR ( Amer) (>60) Est GFR (Non-Af Amer) (>60) BUN/Creatinine Ratio (8-20) Glucose (70-100) mg/dL Calcium (8.6-10.3) mg/dL Total Bilirubin (0.2-1.0) mg/dL AST (13-39) U/L ALT (7-52) U/L Alkaline Phosphatase (34-104) U/L Troponin I (<0.04) ng/mL B-Natriuretic Peptide 57 ( - 100) pg/mL Total Protein (6.4-8.9) g/dL Albumin (3.2-5.2) g/dL Globulin (2-4) g/dL Albumin/Globulin Ratio (1-3) // Range/Units 13:36 WBC (3.5-10.8) 10^3/ul RBC (4.0-5.4) 10^6/ul Hgb (14.0-18.0) g/dl Hct (42-52) % MCV (80-94) fL MCH (27-31) pg MCHC (31-36) g/dl RDW (10.5-15) % Plt Count (150-450) 10^3/ul MPV (7.4-10.4) um3 Neut % (Auto) (38-83) % Lymph % (Auto) (25-47) % [place] % (Auto) (1-9) % Eos % (Auto) (0-6) % Baso % (Auto) (0-2) % Absolute Neuts (auto) (1.5-7.7) 10^3/ul Absolute Lymphs (auto) (1.0-4.8) 10^3/ul Absolute Monos (auto) (0-0.8) 10^3/ul Absolute Eos (auto) (0-0.6) 10^3/ul Absolute Basos (auto) (0-0.2) 10^3/ul Absolute Nucleated RBC 10^3/ul Nucleated RBC % INR (Anticoag Therapy) (0.89-1.11) APTT (26.0-36.3) seconds D-Dimer, Quantitative (Less Than 230) ng/mL Sodium 139 (133-145) mmol/L Potassium 3.5 (3.5-5.0) mmol/L Chloride 102 (101-111) mmol/L Carbon Dioxide 29 (22-32) mmol/L Anion Gap 8 (2-11) mmol/L BUN 14 (6-24) mg/dL Creatinine 0.71 (0.67-1.17) mg/dL Est GFR ( Amer) 141.1 (>60) Est GFR (Non-Af Amer) 109.7 (>60) BUN/Creatinine Ratio 19.7 (8-20) Glucose 112 H (70-100) mg/dL Calcium 9.7 (8.6-10.3) mg/dL Total Bilirubin 1.10 H (0.2-1.0) mg/dL AST 32 (13-39) U/L ALT 51 (7-52) U/L Alkaline Phosphatase 78 (34-104) U/L Troponin I 0.01 (<0.04) ng/mL B-Natriuretic Peptide ( - 100) pg/mL Total Protein 7.2 (6.4-8.9) g/dL Albumin 4.0 (3.2-5.2) g/dL Globulin 3.2 (2-4) g/dL Albumin/Globulin Ratio 1.3 (1-3) Result Diagrams: 04/28/17 13:36 04/28/17 13:36 Lab Statement: Any lab studies that have been ordered have been reviewed, and results considered in the medical decision making process. - Radiology Chest X-ray Radiology Interpretation Completed By: Radiologist - CXR reveals, per radiologist, NO ACTIVE DISEASE ED physician has reviewed this radiology report and agrees. - EKG 1344 EKG Rhythm: Sinus Rhythm EKG Interpretation: an EKG reveals sinus rhythm with no acute changes Disposition - Course Course Of Treatment: This patient is a 43 year old M presenting to [facility] accompanied by with a chief complaint of SOB since February and the chief complaint is described as constant. The patient states that the symptoms were worse since 2 nights ago. Patient reports productive cough (yellow phlegm), and wheezing. Pts states that patient has had decreased sleep. Patient denies edema, and fever. Symptoms alleviated by nebulizer. Patient will be discharged and follow up from PCP within 3 days. Dx is bronchospasm, dyspnea and allergies. The patient is agreeable with this plan. - Differential Dx - Cardiopulmonary Differential Diagnoses - Cardiopulmonary: Acute Dyspnea, Bronchitis, Lower Resp Infection, Other - bronchospasm - Diagnoses Provider Diagnoses: Bronchospasm, Dyspnea, Environmental allergies Discharge - Discharge Plan Condition: Stable Disposition: HOME Prescriptions: Methylprednisolone [Medrol Dosepak 4 MG*] 0 mg PO .SEE FABIAN INSTRUCTION #1 tab Patient Education Materials: Allergies (ED), Dyspnea (ED), Bronchospasm (ED) Referrals: Tramaine Tapia MD [Primary Care Provider] - (Follow up with PCP within 3 days) The documentation as recorded by the Maurizio high Abhishek accurately reflects the service I personally performed and the decisions made by Tato sanchez Emmanuel.
[2017-04-28 15:56] VITALS: BP 106/65
== END 2017-04-28 15:56 | disposition home or self-care (01) ==
LOC: ED 12:41
DX: J98.01 Acute bronchospasm (principal); R06.00 Dyspnea, unspecified; T78.40XA Allergy, unspecified, initial encounter; X58.XXXA Exposure to other specified factors, initial encounter
CPT/HCPCS: 36415; 71010; 80053; 83880; 84484; 85025; 85379; 85610; 85730; 93005; 94640; 99283; A9270-GY; J2930

== ENCOUNTER 2017-07-17 21:00 | Emergency (ER) | payer MEDICARE, BC ==
--- NOTE | 2017-07-17 21:30 | ED ---
Katja Infante Thomas, scribed for Rustam Mccormick MD on 07/17/17 at 2123 . GI/ HPI - HPI Summary HPI Summary: The patient is a 71 year old male referred by his urologist Dr. Montalvo for a Zabala catheter. Per triage note, the patient had inability to void that began tonight at 1930. He last urinated at 14:00. A Zabala was placed when the patient was in the waiting room. After Zabala placement, the patient feels better and feels comfortable to be discharged. He denies hematuria today. - History of Current Complaint Chief Complaint: EDUrogenitalProblems Time Seen by Provider: 07/17/17 21:16 Stated Complaint: UNABLE TO URINATE Hx Obtained From: Patient Onset/Duration: Resolved Severity: Severe Current Severity: None Pain Intensity: 10 Associated Signs and Symptoms: Positive: Other: - Inability to void Aggravating Factor(s): Nothing - Additional Pertinent History Primary Care Physician: LATRICE - Allergy/Home Medications Allergies/Adverse Reactions: Allergies Allergy/AdvReac Type Severity Reaction Status Date / Time MS Iodinated Diagnostic Allergy Severe See Comment Verified 07/17/17 21:05 Agents [Iodinated Diagnostic Agents] MS Levofloxacin Allergy Intermediate Hives Verified 07/17/17 21:05 [Levofloxacin] PMH/Surg Hx/FS Hx/Imm Hx Endocrine/Hematology History: Denies: Hx Diabetes, Hx Thyroid Disease, Hx Anemia, Hx Unexplained Bleeding Cardiovascular History: Reports: Hx Cardiac Arrest, Hx Hypertension - UNDER CONTROL, Hx Myocardial Infarction Denies: Hx Aneurysm, Hx Angina, Hx Angioplasty, Hx Auto Implanted Cardiovert Defib, Hx Cardiomegaly, Hx Congenital Heart Disease, Hx Congestive Heart Failure , Hx Coronary Artery Disease, Hx Deep Vein Thrombosis, Hx Hypercholesterolemia, Hx Hypotension, Hx Pacemaker/ICD, Hx Peripheral Vascular Disease, Hx Rheumatic Fever, Hx Syncope, Hx Valvular Heart Disease, Other Cardiovascular Problems/ Disorders Respiratory History: Denies: Hx Asthma, Hx Chronic Obstructive Pulmonary Disease (COPD) GI History: Denies: Hx Ulcer History: Reports: Hx Benign Prostatic Hyperplasia, Other Problems/ Disorders - prostate cancer, removal of prostate Denies: Hx Renal Disease - hx stones right per pt Musculoskeletal History: Reports: Hx Arthritis, Hx Back Problems Denies: Hx Bursitis, Hx Congenital Bone Abnormalities, Hx Fibromyalgia, Hx Gout, Hx Orthopedic Injury, Hx Osteoporosis, Hx Tendonitis, Other Musculoskeletal History Sensory History: Reports: Hx Contacts or Glasses, Hx Hearing Aid, Hx Hearing Problem Denies: Hx Cataracts, Hx Eye Injury, Hx Eye Prosthesis, Hx Glaucoma, Hx Legally Blind, Hx Macular Degeneration, Hx Vision Problem, Hx Deafness Opthamlomology History: Reports: Hx Contacts or Glasses Denies: Hx Cataracts, Hx Eye Injury, Hx Eye Prosthesis, Hx Glaucoma, Hx Legally Blind, Hx Macular Degeneration, Hx Vision Problem Neurological History: Reports: Other Neuro Impairments/Disorders - PAIN CLINIC INJECTIONS Denies: Hx Dementia, Hx Developmental Delay, Hx Headaches, Hx Migraine, Hx Nerve Disease, Hx Seizures, Hx Spinal Cord Injury, Hx Transient Ischemic Attacks (TIA) Psychiatric History: Denies: Hx Panic Disorder - Cancer History Cancer Type, Location and Year: PROSTATE - Surgical History Surgery Procedure, Year, and Place: Mi - stents IN RCA -TAXUS DRUG ELUTING- 10/09,VASECTOMY 07/1982, RT BREAST GYNECOMASTIA 1965, PROSTATECTOMY 2012 Infectious Disease History: No Infectious Disease History: Denies: Hx Clostridium Difficile, Hx Hepatitis, Hx Human Immunodeficiency Virus (HIV), Hx of Known/Suspected MRSA, Hx Shingles, Hx Tuberculosis, Hx Known/ Suspected VRE, Hx Known/Suspected VRSA, History Other Infectious Disease, Traveled Outside the [place] in Last 30 Days - Family History Known Family History: Positive: Other - Mother and father: [place]. Mother: CVA. Father: leukemia - Social History Alcohol Use: Rare Substance Use Type: Reports: None Smoking Status (MU): Former Smoker Type: Cigarettes Length of Time of Smoking/Using Tobacco: quit 10/09/2004 Review of Systems Negative: Fever Positive: other - Inability to void. Negative: hematuria - no hematuria today All Other Systems Reviewed And Are Negative: Yes Physical Exam - Summary Physical Exam Summary: General: well-appearing, no pain distress Skin: warm, color reflects adequate perfusion, dry Head: normal Eyes: EOMI, SAE ENT: normal Neck: supple, nontender Respiratory: CTA, breath sounds present Cardiovascular: RRR Abdomen: soft, nontender Bowel: present Musculoskeletal: normal, strength/ROM intact Neurological: normal, sensory/motor intact, A&O x3 Psychological: affect/mood appropriate Triage Information Reviewed: Yes Vital Signs On Initial Exam: Initial Vitals Temp Pulse Resp BP Pulse Ox 98.1 F 93 23 166/72 94 07/17/17 21:02 07/17/17 21:02 07/17/17 21:02 07/17/17 21:02 07/17/17 21:02 Vital Signs Reviewed: Yes Diagnostics - Vital Signs Vital Signs Temp Pulse Resp BP Pulse Ox 07/17/17 21:02 98.1 F 93 23 166/72 94 - Laboratory Lab Statement: Any lab studies that have been ordered have been reviewed, and results considered in the medical decision making process. GIGU Course/Dx - Course Course Of Treatment: Medications reviewed. Allergies noted. BP noted and patient urged to follow up with primary care. ZABALA PLACED IN ED. PAIN IMPROVED. F/U UROLOGY. - Diagnoses Provider Diagnoses: Uncontrolled hypertension, Urinary retention Discharge - Discharge Plan Condition: Stable Disposition: HOME Patient Education Materials: Urinary Retention in Men (ED) Referrals: Dalton Montalvo MD [Medical Doctor] - Tramaine Tapia MD [Primary Care Provider] - Additional Instructions: FOLLOW UP WITH YOUR DOCTOR. RETURN TO THE EMERGENCY DEPARTMENT FOR ANY WORSENING OF YOUR CONDITION OR QUESTIONS OR CONCERNS. The documentation as recorded by the Katja high Thomas accurately reflects the service I personally performed and the decisions made by me, Rustam Mccormick MD.
[2017-07-17 21:39] VITALS: BP 154/89
[2017-07-17 21:40] LABS: Urine Appearance Cloudy; Urine Blood 2+ (Negative); Urine Color Yellow; Urine Ketones Negative (Negative); Urine Protein Negative (Negative); Urine Specific Gravity 1.011 (1.010-1.030); Urine Urobilinogen Negative (Negative)
--- OUTSIDE RECORDS SUMMARY | 2017-07-17 21:43 | XMS REPORT ---
:1945 External Reference #:[id number] Author Organization [facility] Address [address] [address] Phone [phone] Care Team Providers Name Role Phone Jhonny Bermudez MD Care Team Information Manager Drilling Unavailable Tramaine Tapia III, MD Primary Care Physician Unavailable Payers Type Date Identification Numbers Payment Provider Subscriber Medicare Primary Policy Number: [id number] Medicare Galen Ellis PayID: [id number] [address] [place] [address] Medigap Part B Effective: 2016 Policy Number: BS Facets Halina Ellis [id number] PayID: [id number] [address] [address] [place] [address] Problems Description No Information Family History Date Family Member(s) Problem(s) Comments Father Heart Disease Father due to Leukemia () Mother due to Heart Attack () Mother Heart Disease Mother Stroke Siblings 5 brothers Social History Type Date Description Comments Marital Status Lives With 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, [facility] ETOH Use Occasionally consumes alcohol Smoking Patient is a former smoker 10/09/04 Recreational Drug Use Denies Drug Use Daily Caffeine Consumes on average 2 cups of decaff coffee per day Daily Caffeine Occasional soda Exercise Type/Frequency Exercises regularly Exercise Type/Frequency Walks daily Allergies, Adverse Reactions, Alerts Date Description Reaction Status Severity Comments 01/16/2017 Levofloxacin active 01/16/2017 Iodine active Medications Medication Date Status Form Strength Qnty SIG Indications Ordering Provider Symbicort 06/21/ Active Aerosol 80-4.5mcg/ 20.7gm 1 puff J45.909 Aniya 2018 Act twice a day MD Mariya Albuterol 05/08/ Active Nebulizer (2.5mg/3ML 90ml 1 vial via Tramaine E. Sulfate 2016 ) 0.083% nebulizer 4 Regina, times daily M.D. as needed Nebulizer 05/08/ Active Device 1units use for J98.01 Tramaine EIvan 2016 albuterol Regina, nebulized M.D. solution up to 4 times a day. J20.9 J40 Acetaminophen 01/31/2017 Active Tablets 500mg 120tabs 1-2 tabs Tramaine Padilla 3x a day Regina, as needed M.D. Atorvastatin Active Tablets 40mg 1 by mouth Unknown Calcium every day Atorvastatin Active Tablets 20mg take 1 Unknown Calcium tablet at bedtime Ezetimibe Active Tablets 10mg 1 by mouth Unknown once daily Valsartan-Hydroc Active Tablets 80-12.5m 1 by mouth Unknown hlorothiazide g every day Metoprolol Active 25mg Unknown Aspir-Low Active Tablets DR 81mg 1 by mouth Unknown every day Ventolin HFA Active Aerosol 108(90Ba 8gm inhale 2 Tramaine Padilla se) puffs by Regina mcg/Act mouth four M.D. times a day if needed Xyzal Allergy Active Tablets 5mg 1 by mouth Unknown 24HR every day Prednisone 05/08/2017 - Hx Tablets 20mg 14tabs 1 by mouth Tramaine Padilla 06/21/2017 every day Noe Tapia Prednisone 04/28/2017 - Hx Tablets 20mg 14tabs 1 by mouth Tramaine Padilla 05/04/2017 every day Regina, x 10 days M.D. Benzonatate 04/16/2017 - Hx Capsules 200mg 30caps take 1 cap J20 Tramaine Padilla 04/26/2017 by mouth 3 .9 Regina, times a M.D. day as needed for cough Doxycycline 04/16/2017 - Hx Capsules 100mg 20caps 1 by mouth Asiya0 Tramaine Padilla Hyclate 04/26/2017 twice a .9 Regina, day M.D. Benzonatate 04/03/2017 - Hx Capsules 100mg 30caps 1-2 tab by Linda Padilla 04/15/2017 mouth .9 Regina, three M.D. times a day as needed Proair HFA 04/03/2017 - Hx Aerosol 108(90Ba 1units 2 puffs by Linda Padilla 04/15/2017 se) mouth four .9 Regina, mcg/Act times a M.D. day as needed Ibuprofen - Hx Capsules 200mg as needed Unknown 01/30/2017 Prednisone - Hx Tablets 10mg Take 4 Unknown 04/28/2017 Tablets By Mouth Once Daily For 3 Days, Then 3 Tablets Michelle... Immunizations CPT Code Status Date Vaccine Lot # [id number] Given 04/03/2017 Influenza Virus Vaccine, Quadrivalent, Split, [id number] Preservative Free [id number] Given 01/31/2017 Pneumococcal Conjugate Vaccine 13 Valent For [id number] Intramuscular Use Vital Signs Date Vital Result Comment 06/21/2017 Height 69 inches 5'9" Weight 263.25 lb with boots Heart Rate 76 /min BP Systolic Sitting 116 mmHg Lue large cuff BP Diastolic Sitting 62 mmHg Lue large cuff Respiratory Rate 18 /min O2 % BldC Oximetry 97 % On Ra BMI (Body Mass Index) 38.9 kg/m2 05/17/2017 Height 69 inches 5'9" Weight 253.00 lb Heart Rate 60 /min BP Systolic Sitting 124 mmHg BP Diastolic Sitting 78 mmHg Respiratory Rate 14 /min O2 % BldC Oximetry 96 % BMI (Body Mass Index) 37.4 kg/m2 05/06/2017 Height 70 inches 5'10" Weight 253.00 lb Heart Rate 64 /min BP Systolic Sitting 120 mmHg BP Diastolic Sitting 64 mmHg Body Temperature 98.3 F O2 % BldC Oximetry 96 % BMI (Body Mass Index) 36.3 kg/m2 04/25/2017 Height 70 inches 5'10" Weight 253.00 lb Heart Rate 71 /min BP Systolic Sitting 116 mmHg BP Diastolic Sitting 64 mmHg Body Temperature 97.9 F O2 % BldC Oximetry 97 % BMI (Body Mass Index) 36.3 kg/m2 04/16/2017 Height 70 inches 5'10" Weight 250.00 lb Heart Rate 73 /min BP Systolic Sitting 136 mmHg BP Diastolic Sitting 60 mmHg Body Temperature 98.5 F O2 % BldC Oximetry 94 % BMI (Body Mass Index) 35.9 kg/m2 04/03/2017 Height 70 inches 5'10" Weight 247.00 lb Heart Rate 59 /min BP Systolic Sitting 118 mmHg BP Diastolic Sitting 72 mmHg Body Temperature 97.0 F O2 % BldC Oximetry 94 % BMI (Body Mass Index) 35.4 kg/m2 01/31/2017 Height 70 inches 5'10" Weight 247.00 lb Heart Rate 70 /min BP Systolic Sitting 118 mmHg BP Diastolic Sitting 58 mmHg Body Temperature 98.0 F O2 % BldC Oximetry 95 % BMI (Body Mass Index) 35.4 kg/m2 01/16/2017 Height 70 inches 5'10" Weight 251.00 lb Heart Rate 61 /min BP Systolic Sitting 140 mmHg BP Diastolic Sitting 76 mmHg Body Temperature 97.4 F O2 % BldC Oximetry 94 % BMI (Body Mass Index) 36.0 kg/m2 01/04/2012 Height 70 inches 5'10" Weight 215.00 lb Heart Rate 64 /min BP Systolic 128 mmHg BP Diastolic 79 mmHg BMI (Body Mass Index) 30.8 kg/m2 Results Test Date Test Result H/L Range Note Laboratory test finding 04/28/2017 Partial Thrombo 27.7 seconds 26.0- 36.3 Time PTT D Dimer Quantitative < 200 ng/mL Less Than 230 1 B-Type Natriuretic Peptide BNP 57 pg/mL 2 Inr/Protime 04/28/2017 Inr 1.02 0.89-1.11 CBC Auto Diff 04/28/2017 White Blood Count 9.3 10^3/uL 3.5-10.8 Red Blood Count 5.02 10^6/uL 4.0-5.4 Hemoglobin 14.4 g/dL 14.0-18.0 Hematocrit 43 % 42-52 Mean Corpuscular Volume 85 fL 80-94 Mean Corpuscular Hemoglobin 29 pg 27-31 Mean Corpuscular HGB Conc 34 g/dL 31-36 Red Cell Distribution Width 15 % 10.5-15 Platelet Count 213 10^3/uL 150-450 Mean Platelet Volume 7 um3 Low 7.4-10.4 Abs Neutrophils 6.3 10^3/uL 1.5-7.7 Abs Lymphocytes 1.5 10^3/uL 1.0-4.8 Abs Monocytes 0.7 10^3/uL 0-0.8 Abs Eosinophils 0.8 10^3/uL High 0-0.6 Abs Basophils 0 10^3/uL 0-0.2 Abs Nucleated RBC 0 10^3/uL Granulocyte % 67.5 % 38-83 Lymphocyte % 16.1 % Low 25-47 Monocyte % 7.3 % 1-9 Eosinophil % 8.7 % High 0-6 Basophil % 0.4 % 0-2 Nucleated Red Blood Cells % 0 Laboratory test finding 04/28/2017 Troponin-I (TnI) 0.01 ng/mL <0.04 Comp Metabolic Panel 04/28/2017 Sodium 139 mmol/L 133-145 Potassium 3.5 mmol/L 3.5-5.0 Chloride 102 mmol/L 101-111 Co2 Carbon Dioxide 29 mmol/L 22-32 Anion Gap 8 mmol/L 2-11 Glucose 112 mg/dL High 70-100 Blood Urea Nitrogen 14 mg/dL 6-24 Creatinine 0.71 mg/dL 0.67-1.17 BUN/Creatinine Ratio 19.7 8-20 Calcium 9.7 mg/dL 8.6-10.3 Total Protein 7.2 g/dL 6.4-8.9 Albumin 4.0 g/dL 3.2-5.2 Globulin 3.2 g/dL 2-4 Albumin/Globulin Ratio 1.3 1-3 Total Bilirubin 1.10 mg/dL High 0.2-1.0 Alkaline Phosphatase 78 U/L 34-104 Alt 51 U/L 7-52 Ast 32 U/L 13-39 Egfr Non- 109.7 >60 Egfr 141.1 >60 3 Urinalysis Profile 04/19/2017 Urine Color Yellow Urine Appearance Clear Urine Specific Bessie 1.019 1.010-1.030 Urine pH 5.0 5-9 Urine Urobilinogen Negative Negative Urine Ketones Negative Negative Urine Protein Negative Negative Urine Leukocytes Negative Negative Urine Blood Negative Negative * * Negative 4 Urine Nitrite Negative Negative Urine Bilirubin Negative Negative Urine Glucose Negative Negative Inr/Protime 04/19/2017 Inr 1.02 0.89-1.11 Laboratory test finding 04/19/2017 Partial Thrombo Time 28.4 seconds 26.0 -36.3 PTT Lactic Acid 1.6 mmol/L 0.5-2.0 5 CBC Auto Diff 04/19/2017 White Blood Count 6.0 10^3/uL 3.5-10.8 Red Blood Count 4.85 10^6/uL 4.0-5.4 Hemoglobin 13.7 g/dL Low 14.0-18.0 Hematocrit 40 % Low 42-52 Mean Corpuscular Volume 83 fL 80-94 Mean Corpuscular Hemoglobin 28 pg 27-31 Mean Corpuscular HGB Conc 34 g/dL 31-36 Red Cell Distribution Width 14 % 10.5-15 Platelet Count 211 10^3/uL 150-450 Mean Platelet Volume 7 um3 Low 7.4-10.4 Abs Neutrophils 3.8 10^3/uL 1.5-7.7 Abs Lymphocytes 1.0 10^3/uL 1.0-4.8 Abs Monocytes 0.6 10^3/uL 0-0.8 Abs Eosinophils 0.6 10^3/uL 0-0.6 Abs Basophils 0 10^3/uL 0-0.2 Abs Nucleated RBC 0 10^3/uL Granulocyte % 63.6 % 38-83 Lymphocyte % 16.4 % Low 25-47 Monocyte % 9.3 % High 1-9 Eosinophil % 10.2 % High 0-6 Basophil % 0.5 % 0-2 Nucleated Red Blood Cells % 0 Laboratory test finding 04/19/2017 B-Type Natriuretic Peptide BNP 33 pg/mL 6 Troponin-I (TnI) 0.00 ng/mL <0.04 Comp Metabolic Panel 04/19/2017 Sodium 140 mmol/L 133-145 Potassium 3.5 mmol/L 3.5-5.0 Chloride 104 mmol/L 101-111 Co2 Carbon Dioxide 29 mmol/L 22-32 Anion Gap 7 mmol/L 2-11 Glucose 108 mg/dL High 70-100 Blood Urea Nitrogen 14 mg/dL 6-24 Creatinine 0.74 mg/dL 0.67-1.17 BUN/Creatinine Ratio 18.9 8-20 Calcium 9.2 mg/dL 8.6-10.3 Total Protein 6.9 g/dL 6.4-8.9 Albumin 3.8 g/dL 3.2-5.2 Globulin 3.1 g/dL 2-4 Albumin/Globulin Ratio 1.2 1-3 Total Bilirubin 0.90 mg/dL 0.2-1.0 Alkaline Phosphatase 79 U/L 34-104 Alt 48 U/L 7-52 Ast 34 U/L 13-39 Egfr Non- 104.6 >60 Egfr 134.5 >60 7 Laboratory test finding 04/19/2017 Magnesium 1.9 mg/dL 1.9-2.7 Procalcitonin < 0.1 ng/mL <0.6 8 Blood Culture SEE RESULT BELOW 9 CBC No Diff 12/24/2016 White Blood Count 6.1 10^3/uL 3.5-10.8 Red Blood Count 5.13 10^6/uL 4.0-5.4 Hemoglobin 14.5 g/dL 14.0-18.0 Hematocrit 44 % 42-52 Mean Corpuscular Volume 85 fL 80-94 Mean Corpuscular Hemoglobin 28 pg 27-31 Mean Corpuscular HGB Conc 33 g/dL 31-36 Red Cell Distribution Width 14 % 10.5-15 Platelet Count 229 10^3/uL 150-450 Mean Platelet Volume 9 um3 7.4-10.4 Comp Metabolic Panel 12/24/2016 Sodium 139 mmol/L 133-145 Potassium 3.9 mmol/L 3.5-5.0 Chloride 104 mmol/L 101-111 Co2 Carbon Dioxide 28 mmol/L 22-32 Anion Gap 7 mmol/L 2-11 Glucose 104 mg/dL High 70-100 Blood Urea Nitrogen 16 mg/dL 6-24 Creatinine 0.66 mg/dL Low 0.67-1.17 BUN/Creatinine Ratio 24.2 High 8-20 Calcium 9.3 mg/dL 8.6-10.3 Total Protein 6.5 g/dL 6.4-8.9 Albumin 3.9 g/dL 3.2-5.2 Globulin 2.6 g/dL 2-4 Albumin/Globulin Ratio 1.5 1-3 Total Bilirubin 1.00 mg/dL 0.2-1.0 Alkaline Phosphatase 71 U/L 34-104 Alt 39 U/L 7-52 Ast 31 U/L 13-39 Egfr Non- 119.3 >60 Egfr 153.5 >60 10 Laboratory test finding 12/24/2016 LDH 189 U/L 140-271 Testosterone Total 224.31 ng/dL Low 240-950 PSA Diagnostic 3.984 ng/mL 0-4.000 11 1 Please note: The following may produce a false positive D Dimer test: - Rheumatoid factor greater than 60 IU/ml - Plasma hemoglobin greater than 0.05 gm/dl - Bilirubin greater than 50 mg/dl - Lipids greater than 1000 mg/dl - FDP greater than 20 ug/ml 2 >100 to <200 pg/mL: likely compensated congestive heart failure (CHF) 200 to 400 pg/mL: likely moderate CHF >400 pg/mL: likely moderate to severe CHF 3 Because ethnic data is not always readily available, this report includes an eGFR for both -Americans and non- Americans. The National Kidney Disease Education Program (NKDEP) does not endorse the use of the MDRD equation for patients that are not between the ages of 18 and 70, are , have extremes of body size, muscle mass, or nutritional status, or are non- or non-. According to the National Kidney Foundation, irrespective of diagnosis, the stage of the disease is based on the level of kidney function: Stage Description GFR(mL/min/1.73 m(2)) 1 Kidney damage with normal or decreased GFR 90 2 Kidney damage with mild decrease in GFR 60-89 3 Moderate decrease in GFR 30-59 4 Severe decrease in GFR 15-29 5 Kidney failure <15 (or dialysis) 4 *Ascorbic acid is present which may interfere with detection of blood. 5 [facility] Severe Sepsis and Septic Shock Management Bundle Measure requires all lactic acids initially measuring >2.0 mmol/L be repeated. 6 >100 to <200 pg/mL: likely compensated congestive heart failure (CHF) 200 to 400 pg/mL: likely moderate CHF >400 pg/mL: likely moderate to severe CHF 7 Because ethnic data is not always readily available, this report includes an eGFR for both -Americans and non- Americans. The National Kidney Disease Education Program (NKDEP) does not endorse the use of the MDRD equation for patients that are not between the ages of 18 and 70, are , have extremes of body size, muscle mass, or nutritional status, or are non- or non-. According to the National Kidney Foundation, irrespective of diagnosis, the stage of the disease is based on the level of kidney function: Stage Description GFR(mL/min/1.73 m(2)) 1 Kidney damage with normal or decreased GFR 90 2 Kidney damage with mild decrease in GFR 60-89 3 Moderate decrease in GFR 30-59 4 Severe decrease in GFR 15-29 5 Kidney failure <15 (or dialysis) 8 Interpretive information available on [employer] Test Catalog at [email or web address] 9 SEE RESULT BELOW Name: GALEN ELLIS : [address]: Timmy Begum MD Acct: [id number] Unit: [id number] AGE: 71 Location: [place] [address] Re04/19/17 Dis: 04/19/17 SEX: M Status: DIS Pedro SPEC: [id number] [place]AROL[place]: 04/19/[address] [facility] [address]: Trev Godwin MD REQ: [id number] RECD: 04/19/17 STATUS: RES JOSEPH DR: Tramaine Tapia III, MD _ SOURCE: BLOOD,VENO SPDESC: ORDERED: Blood Cult Procedure Result Reported Site Aerobic Culture Bottle Preliminary 04/20/1759 ML No Growth Day 1 Anaerobic Culture Bottle Preliminary 04/20/1759 ML No Growth Day 1 * ML - MAIN LAB ([facility]) . END OF REPORT * ML=Testing performed at Main Lab DEPARTMENT OF PATHOLOGY, [address] [place] [address] Jase Jarvis M.D. Director [facility] # [id number] 10 Because ethnic data is not always readily available, this report includes an eGFR for both -Americans and non- Americans. The National Kidney Disease Education Program (NKDEP) does not endorse the use of the MDRD equation for patients that are not between the ages of 18 and 70, are , have extremes of body size, muscle mass, or nutritional status, or are non- or non-. According to the National Kidney Foundation, irrespective of diagnosis, the stage of the disease is based on the level of kidney function: Stage Description GFR(mL/min/1.73 m(2)) 1 Kidney damage with normal or decreased GFR 90 2 Kidney damage with mild decrease in GFR 60-89 3 Moderate decrease in GFR 30-59 4 Severe decrease in GFR 15-29 5 Kidney failure <15 (or dialysis) 11 Serum levels of PSA measured using the ALTILIA DXI Hybritech immunoassay should not be interpreted as absolute evidence of the presence or absence of disease. The PSA value should be used in conjunction with other pertinent clinical diagnostic procedures. The values obtained with different assay methods or kits cannot be used interchangeably. Procedures Date CPT Code Description Status 05/23/2017 64345 Diffusing Capacity Completed 05/23/2017 71153 Plethysmography Determination Lung Volumes & Per Completed Airway Resist 05/23/2017 46109 Pulmonary Function><Bronchodil Completed 09/20/2016 66610 EKG, Interpretation Only Completed 01/19/2014 Colonoscopy Completed 02/13/2006 Colonoscopy Completed Encounters Type Date Location Provider CPT E/M Dx Office Visit 05/17/2017 7:00a [facility] [address] J[facility] E66.09 K21.9 Z68.37 Office Visit 05/06/2017 10:00a [facility] - Tramaine Tapia, 11936 J98.01 Nadege Liu Office Visit 04/25/2017 1:00p [facility] - Tramaine Tapia, 22161 J20.9 Nadgee Liu Office Visit 04/19/2017 6[facility]p [facility]Ayaka Smith.PIvan [address] J40 Hospitalists J98.01 I25.10 I10 Office Visit 04/16/2017 1:00p [facility] Tramaine Tapia, 25641 J20.9 - Nadege Liu Office Visit 04/03/2017 11:40a [facility] Tramaine Tapia 19996 J20.9 - Nadege Liu Z23 Office Visit 01/31/2017 3:00p [facility] Tramaine Tapia, 66309 Z00.00 - Nadege Liu I10 I25.10 C61 E78.00 M54.5 Z11.59 Z23 Office Visit 01/16/2017 10:00a [facility] Tramaine Tapia, 83003 M54.5 - Nadege Liu C61 I10 I25.10 E78.00 Office Visit 09/20/2016 8:41a [facility] [address] R55 Hospitalists R65.10 T78.40xA I10 Office Visit 09/19/2016 8:40a [facility], Christiano Colón, 38025 R55 Hospitalists N.P. R65.10 T78.40xA I10 Office Visit 01/04/2012 3:30p [facility], 14961 728.71 C.M.A. MSergio. Plan of Care Future Appointment(s):12/19/2017 9:15 am - Aniya Meraz MD at [facility]08/06/2017 10:00 am - Tramaine Tapia M.D. at [facility] - Emvkpzrwc37/05/2018 - Aniya Meraz MDJ45.909 Unspecified asthma, uncomplicatedNew Medication:Symbicort 80-4.5 mcg/ActFollow up:6 bfcycgD48.9 Gastro-esophageal reflux disease without bksqqqsjzuqG67.09 Other obesity due to excess calories
--- OUTSIDE RECORDS SUMMARY | 2017-07-17 21:43 | XMS REPORT ---
:1945 External Reference #:[id number] Author Organization [facility] Address [address] [place] [address] Phone [phone] Care Team Providers Name Role Phone Jhonny Bermudez MD Care Team Information Business Relations Manager Unavailable Jhonny Bermudez MD Primary Care Physician Unavailable Payers Type Date Identification Numbers Payment Provider Subscriber Medicare Primary Policy Number: [id number] [place] PayID: [id number] [address] [place] [address] Medigap Part B Policy Number: [id number] [facility] Excell Juan Diego Toro PayID: [id number] [address] [address] [place] [address] Problems Date Description Provider Status Onset: 05/28/2017 Uncomplicated moderate persistent Danie Velasquez MD Active asthma Onset: 11/06/2016 Drug allergy Danie Velasquez MD Active Family History Date Family Member(s) Problem(s) Comments General Unknown Social History Type Date Description Comments Smoke-Free Home is smoke-free Pets 1 dog Smoking 11/06/2016 Patient is a former smoker Allergies, Adverse Reactions, Alerts Date Description Reaction Status Severity Comments 11/06/2016 Levofloxacin active 11/06/2016 Iodine active Medications Medication Date Status Form Strength Qnty SIG Indications Ordering Provider Lipitor / Active Unknown 0000 Zetia / Active Tablets 10mg Unknown 0000 Valsartan-[place] / Active Tablets 80-12.5mg Unknown chlorothiazide 0000 Aspirin Adult / Active Chewtabs 81mg Unknown Low Strength 0000 Mucinex DM / Active Tablets ER 30-600mg Unknown 0000 12HR Acetaminophen 00/00/ Active Capsules 500mg Unknown 0000 Atorvastatin 0000/ Active Tablets 40mg 1 by mouth Unknown Calcium 0000 every day Atorvastatin 0000/ Active Tablets 20mg take 1 Unknown Calcium 0000 tablet at bedtime Aspir-81 00/ Active Tablets DR 81mg i tab Unknown 0000 everyday Symbicort 0000/ Active Unknown 0000 Lupron Depot / Active Unknown (3-Month) 0000 Benzonatate 04/16/ Hx Capsules 200mg 30caps take 1 cap J20.9 Regina 2017 - by mouth 3 III, 05/28/ times a Tramaine Eddy 2016 day as MD needed for cough Doxycycline 04/16/ Hx Capsules 100mg 20caps 1 by mouth J20.9 Regina Hyclate 2017 - twice a III, 05/28/ day Tramaine Eddy 2016 Prednisone / Hx Tablets 10mg Take 4 Unknown 0000 - Tablets By 05/28/ Mouth Once 2016 Daily For 3 Days, Then 3 Tablets Michelle... Immunizations CPT Code Status Date Vaccine Lot # [id number] Given 04/03/2017 Fluarix Quadrivalent, Preservative Free 0.5mL [id number] Given 01/31/2017 Pneumococcal Conjugate Vaccine 13 Valent For Intramuscular Use Vital Signs Date Vital Result Comment 06/18/2017 Height 70 inches 5'10" Weight 255.00 lb BMI (Body Mass Index) 36.6 kg/m2 Heart Rate 85 /min Body Temperature 98.0 F O2 % BldC Oximetry 94 % 05/28/2017 Height 70 inches 5'10" Weight 255.00 lb BMI (Body Mass Index) 36.6 kg/m2 Heart Rate 75 /min Respiratory Rate 18 /min Body Temperature 97.8 F O2 % BldC Oximetry 97 % 04/25/2017 Height 70 inches Weight 253.00 lb BMI (Body Mass Index) 36.3 kg/m2 Heart Rate 71 /min Body Temperature 97.9 F O2 % BldC Oximetry 97 % 04/16/2017 Height 70 inches Weight 250.00 lb BMI (Body Mass Index) 35.9 kg/m2 Heart Rate 73 /min Body Temperature 98.5 F O2 % BldC Oximetry 94 % 04/03/2017 Height 70 inches Weight 247.00 lb BMI (Body Mass Index) 35.4 kg/m2 Heart Rate 59 /min Body Temperature 97.0 F O2 % BldC Oximetry 94 % 11/06/2016 BP Systolic 122 mmHg BP Diastolic 74 mmHg Height 70 inches 5'10" Weight 251.00 lb BMI (Body Mass Index) 36.0 kg/m2 Heart Rate 94 /min Respiratory Rate 16 /min Body Temperature 96.9 F O2 % BldC Oximetry 63 % Results Test Date Test Result H/L Range Note Urinalysis Profile 04/19/2017 Urine Specific [place] 1.019 1 1.010-1.030 Urine pH 5.0 1 5-9 Laboratory test finding 04/19/2017 Albumin 3.8 g/dL 3.2-5.2 Albumin/Globulin Ratio 1.2 1 1-3 Alkaline Phosphatase 79 U/L 34-104 Alt 48 U/L 7-52 Anion Gap 7 mmol/L 2-11 Ast 34 U/L 13-39 B-Type Natriuretic Peptide BNP 33 pg/mL 1 BUN/Creatinine Ratio 18.9 1 8-20 Blood Urea Nitrogen 14 mg/dL 6-24 Calcium 9.2 mg/dL 8.6-10.3 Chloride 104 mmol/L 101-111 Co2 Carbon Dioxide 29 mmol/L 22-32 Creatinine 0.74 mg/dL 0.67-1.17 Egfr 134.5 1 >60 Egfr Non- 104.6 1 >60 Globulin 3.1 g/dL 2-4 Glucose 108 mg/dL High 70-100 Lactic Acid 1.6 mmol/L 0.5-2.0 Magnesium 1.9 mg/dL 1.9-2.7 2 Partial Thrombo Time PTT 28.4 s 26.0-36.3 3 Potassium 3.5 mmol/L 3.5-5.0 Sodium 140 mmol/L 133-145 4 Total Bilirubin 0.90 mg/dL 0.2-1.0 Total Protein 6.9 g/dL 6.4-8.9 Troponin-I (TnI) 0.00 ng/mL <0.04 CBC Auto Diff 04/19/2017 Abs Basophils 0 10^3/uL 0-0.2 Abs Eosinophils 0.6 10^3/uL 0-0.6 Abs Lymphocytes 1.0 10^3/uL 1.0-4.8 Abs Monocytes 0.6 10^3/uL 0-0.8 Abs Neutrophils 3.8 10^3/uL 1.5-7.7 Abs Nucleated RBC 0 10^3/uL Basophil % 0.5 % 0-2 Eosinophil % 10.2 % High 0-6 Granulocyte % 63.6 % 38-83 Hematocrit 40 % Low 42-52 Hemoglobin 13.7 g/dL Low 14.0-18.0 Lymphocyte % 16.4 % Low 25-47 Mean Corpuscular HGB Conc 34 g/dL 31-36 Mean Corpuscular Hemoglobin 28 pg 27-31 Mean Corpuscular Volume 83 fL 80-94 Mean Platelet Volume 7 um3 Low 7.4-10.4 Monocyte % 9.3 % High 1-9 Nucleated Red Blood Cells % 0 1 Platelet Count 211 10^3/uL 150-450 Red Blood Count 4.85 10^6/uL 4.0-5.4 Red Cell Distribution Width 14 % 10.5-15 White Blood Count 6.0 10^3/uL 3.5-10.8 Inr/Protime 04/19/2017 Inr 1.02 1 0.89-1.11 Laboratory test finding 12/24/2016 Albumin 3.9 g/dL 3.2-5.2 Albumin/Globulin Ratio 1.5 1 1-3 Alkaline Phosphatase 71 U/L 34-104 Alt 39 U/L 7-52 Anion Gap 7 mmol/L 2-11 Ast 31 U/L 13-39 BUN/Creatinine Ratio 24.2 1 High 8-20 Blood Urea Nitrogen 16 mg/dL 6-24 Calcium 9.3 mg/dL 8.6-10.3 Chloride 104 mmol/L 101-111 Co2 Carbon Dioxide 28 mmol/L 22-32 Creatinine 0.66 mg/dL Low 0.67-1.17 Egfr 153.5 1 >60 Egfr Non- 119.3 1 >60 Globulin 2.6 g/dL 2-4 Glucose 104 mg/dL High 70-100 Hematocrit 44 % 42-52 Hemoglobin 14.5 g/dL 14.0-18.0 LDH 189 U/L 140-271 5 Mean Corpuscular HGB Conc 33 g/dL 31-36 Mean Corpuscular Hemoglobin 28 pg 27-31 Mean Corpuscular Volume 85 fL 80-94 Mean Platelet Volume 9 um3 7.4-10.4 PSA Diagnostic 3.984 ng/mL 0-4.000 Platelet Count 229 10^3/uL 150-450 Potassium 3.9 mmol/L 3.5-5.0 Red Blood Count 5.13 10^6/uL 4.0-5.4 Red Cell Distribution Width 14 % 10.5-15 Sodium 139 mmol/L 133-145 6 Testosterone Total 224.31 ng/dL Low 240-950 Total Bilirubin 1.00 mg/dL 0.2-1.0 Total Protein 6.5 g/dL 6.4-8.9 White Blood Count 6.1 10^3/uL 3.5-10.8 1 >100 to <200 pg/mL: likely compensated congestive heart failure (CHF) 200 to 400 pg/mL: likely moderate CHF >400 pg/mL: likely moderate to severe CHF 2 Interpretive information available on [facility] Test Catalog at [email or web address] 3 [facility] Severe Sepsis and Septic Shock Management Bundle Measure requires all lactic acids initially measuring >2.0 mmol/L be repeated. 4 Because ethnic data is not always readily [...] 15-29 5 Kidney failure <15 (or dialysis) 5 Serum levels of PSA measured using the [employer] DXI Hybritech immunoassay should not be interpreted as absolute evidence of the presence or absence of disease. The PSA value should be used in conjunction with other pertinent clinical diagnostic procedures. The values obtained with different assay methods or kits cannot be used interchangeably. 6 Because ethnic data is not always readily [...] 15-29 5 Kidney failure <15 (or dialysis) Procedures Date CPT Code Description Status 05/28/2017 33035 Allergy Tests Percutaneous W/ Allergenic Extracts Completed Encounters Type Date Location Provider CPT E/M Dx Office Visit 05/28/2017 9:30[place] [address] J45.40 Office Visit 11/06/2016 10:00a [place] [address] Z88.9 Plan of Care No Information Available
--- OUTSIDE RECORDS SUMMARY | 2017-07-17 21:43 | XMS REPORT ---
:1945 External Reference #:[id number] Author Organization [facility] Address [address] [place] [address] Phone [phone] Care Team Providers Name Role Phone Jhonny Bermudez MD Care Team Information Oim Architect Unavailable Jhonny Bermudez MD Primary Care Physician Unavailable Payers Type Date Identification Numbers Payment Provider Subscriber Medicare Primary Policy Number: [id number] [place] PayID: [id number] [address] [place] [address] Medigap Part B Policy Number: [id number] [facility] Excell [place] Gama Cortez PayID: [id number] [address] [address] [place] [address] Problems Date Description Provider Status Onset: 06/18/2017 Allergic rhinitis Danie Velasquez MD Active Onset: 06/18/2017 Allergic rhinitis due to pollen Danie Velasquez MD Active Onset: 05/28/2017 Uncomplicated moderate persistent Danie Velasquez [...] Strength Qnty SIG Indications Ordering Provider Lipitor 00/ Active Unknown 0000 Zetia 00// Active Tablets 10mg Unknown 0000 Valsartan-[place] / Active Tablets 80-12.5mg Unknown chlorothiazide 0000 Aspirin Adult / Active Chewtabs 81mg Unknown Low Strength 0000 Mucinex DM / Active Tablets ER 30-600mg Unknown 0000 12HR Acetaminophen / Active Capsules 500mg Unknown 0000 Atorvastatin / Active Tablets 40mg 1 by mouth Unknown Calcium 0000 every day Atorvastatin / Active Tablets 20mg take 1 Unknown Calcium 0000 tablet at bedtime Aspir-81 / Active Tablets DR 81mg i tab Unknown 0000 everyday Symbicort / Active Unknown 0000 Lupron Depot / Active Unknown (3-Month) 0000 Benzonatate 04/16/ Hx Capsules 200mg 30caps take 1 cap J20.9 Regina 2017 - by mouth 3 III, 05/28/ times a Tramaine Eddy 2016 day as MD needed for cough Doxycycline 04/16/ Hx Capsules 100mg 20caps 1 by mouth J20.9 Regina Hyclate 2017 - twice a III, 05/28/ day Tramaine Eddy 2016 MD Prednisone / Hx Tablets 10mg Take 4 Unknown 0000 - Tablets By 05/28/ Mouth Once 2016 Daily For 3 Days, Then 3 Tablets Michelle... Immunizations CPT Code Status Date Vaccine Lot # [id number] Given 04/03/2017 Fluarix Quadrivalent, Preservative Free 0.5mL 09446 Given 01/31/2017 Pneumococcal Conjugate Vaccine 13 Valent [...] Range Note Urinalysis Profile 04/19/2017 Urine Specific [place] 1.019 1 1.010-1.030 Urine pH 5.0 1 [...] severe CHF 2 Interpretive information available on [facility] Test Catalog at [email or web address] 3 [facility] Severe Sepsis and Septic Shock Management [...] Serum levels of PSA measured using the [employer] DXI Hybritech immunoassay should not be interpreted [...] Procedures Date CPT Code Description Status 05/28/2017 48276 Allergy Tests Percutaneous W/ Allergenic Extracts Completed Encounters Type Date Location Provider CPT E/M Dx Office Visit 06/18/2017 9:30[place] [address] J45.40 J30.1 J30.89 Office Visit 05/28/2017 9:30[place] [address] J45.40 Office Visit 11/06/2016 10:00[place] [address] Z88.9 Plan of Care Future Appointment(s):06/20/2017 9:35 am - Injection 1 at [facility]/02/2018 - Danie Velasquez MDJ45.40 Moderate persistent asthma, [id number] Allergic rhinitis due to irnxepL58.89 Other allergic rhinitis
== END 2017-07-17 21:38 | disposition home or self-care (01) ==
LOC: ED 21:00
DX: R33.9 Retention of urine, unspecified (principal); Z86.74 Personal history of sudden cardiac arrest; I25.2 Old myocardial infarction; I10 Essential (primary) hypertension; Z95.5 Presence of coronary angioplasty implant and graft; M19.90 Unspecified osteoarthritis, unspecified site; Z85.46 Personal history of malignant neoplasm of prostate; Z88.1 Allergy status to other antibiotic agents; Z91.041 Radiographic dye allergy status; Z87.891 Personal history of nicotine dependence
CPT/HCPCS: 51702; 81003; 81015; 87077; 87086; 87186; 99282

== ENCOUNTER 2019-02-01 10:42 | Emergency (ER) | payer MEDICARE, BC ==
[2019-02-01 10:57] VITALS: BP 125/70
--- NOTE | 2019-02-01 11:22 | UC ---
Ear Complaint HPI - HPI Summary HPI Summary: patient feels the tip of his hearing aid is stuck in L ear for 3 days. Today he tried inserting ear plug to shoot trap and couldn't put it in. has had some pain in ear over past 2 days but no drainage - History of Current Complaint Chief Complaint: UCForeignBody Stated Complaint: FB IN EAR Time Seen by Provider: 02/01/19 11:04 Hx Obtained From: Patient Onset/Duration: Sudden Onset Severity Currently: Mild Pain Intensity: 3 Aggravating Factors: Other - ear plug in ear Alleviating Factors: Nothing Associated Signs/Symptoms: Positive: Foreign Body Sensation - Allergies/Home Medications Allergies/Adverse Reactions: Allergies Allergy/AdvReac Type Severity Reaction Status Date / Time Iodinated Contrast Media Allergy See Comment Verified 02/01/19 10:58 levofloxacin Allergy Hives Verified 02/01/19 10:58 environmental Allergy Congestion Uncoded 02/01/19 10:58 Home Medications: Home Medications Leuprolide Acetate [Lupron Depot (Lupaneta)] 1 unit IM ONCE 02/01/19 [History Confirmed 02/01/19] PMH/Surg Hx/FS Hx/Imm Hx Previously Healthy: Yes Endocrine History: Dyslipidemia Cardiovascular History: Hypertension - Surgical History Surgical History: Yes Surgery Procedure, Year, and Place: Mi - stents IN RCA -[facility] EL[facility]ING- 10/09,VASECTOMY 07/1982, RT BREAST GYNECOMASTIA 1965, PROSTATECTOMY 2012. AMS 800 unit urinary catheter - Family History Known Family History: Positive: Other - Mother and father: [place]. Mother: CVA. Father: leukemia - Social History Occupation: Employed Full-time Lives: With Family Alcohol Use: Rare Substance Use Type: None Smoking Status (MU): Former Smoker Type: Cigarettes Length of Time of Smoking/Using Tobacco: quit 10/09/2004 Review of Systems All Other Systems Reviewed And Are Negative: Yes Constitutional: Positive: Negative Eyes: Positive: Negative ENT: Positive: Ear Ache, Other - FB sensation L ear Respiratory: Positive: Negative Cardiovascular: Positive: Negative Neurological: Positive: Negative. Negative: Headache Psychological: Positive: Negative Is Patient Immunocompromised?: No Physical Exam Triage Information Reviewed: Yes Appearance: Well-Appearing, No Pain Distress, Well-Nourished Vital Signs: Initial Vital Signs Temp 95.1 F 02/01/19 10:51 Pulse 57 02/01/19 10:51 Resp 18 02/01/19 10:51 BP 125/70 02/01/19 10:51 Pulse Ox 95 02/01/19 10:51 Vital Signs Reviewed: Yes ENT: Positive: Other - clear plastic appearing FB L ear canal Respiratory Exam: Normal Respiratory: Positive: Lungs clear Cardiovascular Exam: Normal Cardiovascular: Positive: RRR Neurological Exam: Normal Neurological: Positive: Alert Psychological Exam: Normal Skin Exam: Normal Ear Complaint Course/Dx - Course Course Of Treatment: FB L ear removed with instrumentation (currette and alligator forceps) after water irrigation failed to remove FB. TM appears pearly and dull after FB removed - Differential Dx/Diagnosis Differential Diagnosis/HQI/PQRI: Cerumen Impaction, Foreign Body Provider Diagnosis: Foreign body Discharge - Sign-Out/Discharge Documenting (check all that apply): Patient Departure All imaging exams completed and their final reports reviewed: No Studies - Discharge Plan Condition: Good Disposition: HOME Prescriptions: Neomyc/Polym/HC 1% OTIC SUSP* [Cortisporin Otic Susp 1%*] 4 drop LEFT EAR TID 3 Days #1 btl Patient Education Materials: Ear Foreign Body (ED) Referrals: Tramaine Tapia MD [Primary Care Provider] - 3 Days (If no better) Additional Instructions: Keep hearing aid out of L ear for next 5 days Use ear drops as directed for 3 days - Billing Disposition and Condition Condition: GOOD Disposition: Home - Attestation Statements Provider Attestation: I was available for consult. This patient was seen by the MICHELLE. The patient was not presented to , seen by or examined by ks -Tanya Silva MD
== END 2019-02-01 12:00 | disposition home or self-care (01) ==
LOC: UCEAST 10:42
DX: T16.2XXA Foreign body in left ear, initial encounter (principal); X58.XXXA Exposure to other specified factors, initial encounter; Y92.9 Unspecified place or not applicable; E78.5 Hyperlipidemia, unspecified; I10 Essential (primary) hypertension; Z87.891 Personal history of nicotine dependence
CPT/HCPCS: 69200; 99213; G0463

== ENCOUNTER 2021-12-19 14:00 | Observation (INO) ==
[~2021-12-19 14:00] MED LIST: Buffered Lidocaine 1% SYRIN 1 ml INTRADERM ONE; Lactated Ringers 1000 ml BAG 1,000 ML IV SCH
[2022-01-18] MEDS ORDERED: Famotidine IV 10 MG/ML 2 ml VIAL (20 mg) IV ONE (06:00)
[2022-01-18] MEDS ORDERED: Dexamethasone IV 4 MG/ML VIAL 1 ml VIAL IV SLOW PU ONE (06:00)
[2022-01-18] MEDS ORDERED: Buffered Lidocaine 1% SYRIN 1 ml INTRADERM ONE (06:00)
[2022-01-18] MEDS ORDERED: Lactated Ringers 1000 ml BAG 1,000 ML IV SCH ×2 (06:00→14:00)
[2022-01-18] MEDS ORDERED: ceFAZolin 2 GM in NS PREMIX 2 GM/100 ML BAG IVPB ONE (09:19)
[2022-01-18] MEDS ORDERED: Dexamethasone IV 4 MG/ML VIAL 1 ml VIAL ONE (09:19)
[2022-01-18] MEDS ORDERED: Famotidine IV 10 MG/ML 2 ml VIAL (20 mg) ONE (09:19)
[2022-01-18] MEDS ORDERED: Propofol 10 MG/ML 20 ML BTL ONE (09:33)
[2022-01-18] MEDS ORDERED: Lidocaine 2% PF 5 ML VIAL ONE (09:34)
[2022-01-18] MEDS ORDERED: Midazolam 2 mg/2 ml VIAL 1 mg/ml 2 ml VIAL (2 mg) ONE ×2 (09:34→11:19)
[2022-01-18] MEDS ORDERED: Acetaminophen IV 1 GM/100ML 100 ML IV ONE (09:34)
[2022-01-18] MEDS ORDERED: Ondansetron 4 mg VIAL 2 MG/ML 2 ml VIAL ONE (09:34)
[2022-01-18] MEDS ORDERED: fentaNYL 250 mcg/5 ml 50 MCG/ML 5 ml VIAL (250 MCG) ONE (09:34)
[2022-01-18] MEDS ORDERED: Bupivacaine 0.5% SDV PF 30ML VIAL ONE (09:34)
[2022-01-18] MEDS ORDERED: fentaNYL 100 mcg/2 ml 50 MCG/ML VIAL ONE ×2 (09:35→11:19)
[2022-01-18 09:37] LABS: INR 1.19 (0.89-1.11)
[2022-01-18] MEDS ORDERED: ROPIVACAINE 5 MG/ML 30 ML BTL (0.5%) ONE ×3 (11:18→13:54)
[2022-01-18] MEDS ORDERED: Rocuronium 50 mg VIAL 10 mg/ml 5 ml VIAL (50 mg) ONE (11:55)
[2022-01-18] MEDS ORDERED: Morphine 4 MG/ML VIAL (1 ml) IV PRN (12:47)
[2022-01-18] MEDS ORDERED: fentaNYL 100 mcg/2 ml 50 MCG/ML VIAL IV PRN (12:47)
[2022-01-18] MEDS ORDERED: Naloxone 0.4 mg VIAL 0.4 mg/ml 1 ml VIAL IV PRN (12:47)
[2022-01-18] MEDS ORDERED: Prochlorperazine 5 mg/ml 2 ml VIAL (10 mg) IV PRN (12:47)
[2022-01-18] MEDS ORDERED: HYDROmorphone 0.5 MG/0.5 ML SYRINGE ONE (13:03)
[2022-01-18] MEDS ORDERED: Ketamine HCL 50 mg/ml 10 ml VIAL (500 MG) ONE (13:05)
[2022-01-18] MEDS ORDERED: Morphine 2 MG/ML SYRINGE IV PRN (13:14)
[2022-01-18] MEDS ORDERED: Ondansetron 4 mg VIAL 2 MG/ML 2 ml VIAL IV PRN (13:14)
[2022-01-18] MEDS ORDERED: Lactulose 30 ml UDC PO PRN (13:14)
[2022-01-18] MEDS ORDERED: Ondansetron ODT 4 mg TAB 4 MG TAB PO PRN (13:14)
[2022-01-18] MEDS ORDERED: Magnesium Hydroxide LIQ 30 ML UDC PO PRN (13:14)
[2022-01-18] MEDS ORDERED: Prochlorperazine 5 mg/ml 2 ml VIAL (10 mg) ONE (16:29)
[2022-01-18] MEDS: Magnesium Hydroxide LIQ 30 ML UDC PO SCH (20:18)
[2022-01-18] MEDS: ceFAZolin 1 GM ADVAN 1 GM in NS 0.9% 50 ML 50 ML IVPB SCH (20:19)
[2022-01-19] MEDS: ceFAZolin 1 GM ADVAN 1 GM in NS 0.9% 50 ML 50 ML IVPB SCH ×2 (05:20→11:58)
[2022-01-19 06:19] LABS: Hematocrit 37 % (42-52); Hemoglobin 12.2 g/dL (14.0-18.0); Mean Platelet Volume 7.5 fL (7.4-10.4); Platelet Count 188 10^3/uL (150-450)
[2022-01-19 06:35] LABS: Calcium 8.9 mg/dL (8.6-10.3); Potassium 4.5 mmol/L (3.5-5.0); eGFR CKD-EPI 96.1 (>60)
[2022-01-19] MEDS: Vitamin THERAPEUTIC TAB PO SCH (08:59)
[2022-01-19] MEDS ORDERED: Valsartan/HCTZ 80/12.5(NF) TAB PO SCH (09:00)
[2022-01-19] MEDS: Magnesium Hydroxide LIQ 30 ML UDC PO SCH (09:00)
[2022-01-19] MEDS ORDERED: Furosemide 20 mg/2 ml IV VIAL IV SLOW PU ONE (15:55)
[2022-01-20 05:59] LABS: Hematocrit 33 % (42-52); Hemoglobin 11.4 g/dL (14.0-18.0); Mean Platelet Volume 7.4 fL (7.4-10.4); Platelet Count 155 10^3/uL (150-450)
[2022-01-20] MEDS: Vitamin THERAPEUTIC TAB PO SCH (08:59)
[2022-01-20] MEDS ORDERED: Furosemide 20 mg/2 ml IV VIAL IV SLOW PU ONE (09:34)
[2022-01-20 11:33] VITALS: BP 113/51
== END 2022-01-20 16:00 | disposition home or self-care (01) ==
LOC: INTOOBSV 01-18 08:42 → AA 01-18 08:42 → SSU 01-18 17:17
PROVIDERS: ADMIT Orthopaedic Surgery Adult Reconstructive Orthopaedic Surgery; ATTEND Orthopaedic Surgery Adult Reconstructive Orthopaedic Surgery